=== PATIENT | male | born 1975 | race Caucasian/White ===

== ENCOUNTER 2024-06-28 12:04 | Emergency (ER) | payer OTHER, MEDICAID, SELFPAY ==
[2024-06-28] VITALS (10 sets, daily range): BP systolic 174–211; BP diastolic 97–122; PULSE 91–110; RESP 10–20; TEMP 36.5–36.6; O2SAT 95–97; BMI 40.8
--- NOTE | 2024-06-28 12:33 | PC.NURSE ---
Left lower posterior wheezing. Diminished breath sounds anteriorly and posteriorly. Muffled heart sounds. Pt states he has not taken his bp meds or his anticoagulant meds in a few months. Pt notes bilaterally lower extremity swelling; worse on left per pt. Pt states when he lays flat on his back he feels fluid building up. Pt states he does not feel his wheezing is worse than his normal.
--- NOTE | 2024-06-28 12:34 | ED.EXTPRO ---
HPI - Extremity Problem General Chief complaint: Extremity Problem,Nontraumatic Stated complaint: swollen leg and foot sent by [facility] r/o blood clot Time Seen by Provider: 06/28/24 12:33 Source: patient Mode of arrival: Ambulatory Limitations: no limitations History of Present Illness HPI Narrative: 48-year-old male history of hypertension, DVT and pulmonary embolism 3 years ago not on any anticoagulation presents with complaint of mild shortness of breath, left lower leg swelling and right ankle swelling. Patient presents with complaint of a week of bilateral lower extremity right greater than left, states he has occasionally had some mild swelling in the past but not quite this much except when he did have blood clots in his legs. Patient states no fevers or chills, has had some mild coughing nasal congestion. States occasional twinge of chest pain nothing today. States occasionally he felt short of breath but related this to seasonal allergies he states he is usually short of breath in the fall. Denies any nausea or vomiting, no diaphoresis, no issues with bowel movements or urination. No syncope. Patient states source of his blood clots was never found, was on anticoagulation for 6 months, had repeat ultrasounds which were negative and was cleared to stop his anticoagulation. States no daily prescription medications. Did use to take antihypertensives but his insurance ran out and he never restarted them. Has a history of hernia repair, no known drug allergies, does chew tobacco, has 3 or 4 alcoholic drinks daily, uses marijuana but no other recreational drugs. Does not currently have a primary care physician. Related Data Previous Rx's Medication Instructions Recorded albuterol sulfate 90 mcg/actuation 2 puff inhalation Q4-6H PRN 06/28/24 aerosol inhaler shortness of breath or wheezing #6.7 grams losartan 25 mg tablet 25 mg PO DAILY #30 tabs 06/28/24 Allergies Allergy/AdvReac Type Severity Reaction Status Date / Time No Known Drug Allergies Allergy Verified 06/28/24 12:20 Review of Systems Review of Systems ROS Unobtainable: All systems reviewed & are unremarkable except as noted in HPI and below Patient History Social History Smoking Status: Never smoker Smoking Status: Never smoker alcohol intake frequency: 0-2 drinks per day Substance Use Type: marijuana Exam Narrative Exam Narrative: GENERAL: Alert and oriented x three, obese male in mild distress HEENT: Head normocephalic, atraumatic, EOMI, pupils reactive, face symmetric, moist mucous membranes NECK: Supple, full range of motion CARDIOVASCULAR: Regular rate and rhythm without murmurs, rubs or gallops. No JVD, bilateral pedal and ankle edema, no pretibial edema on exam. No JVD. RESPIRATORY: Breath sounds equal bilaterally, no wheezes rales or rhonchi. No tachypnea, no accessory muscle use. Speaks in full sentences. ABDOMEN: Soft, nontender. Normoactive bowel sounds all 4 quadrants. No guarding or rebound, rigidity, no mass : No CVA tenderness EXTREMITIES: Normal range of motion, no clubbing. Neurovascularly intact NEUROLOGICAL: Cranial nerves II through XII grossly intact. Moving all extremities SKIN: Warm, dry, no petechiae, no rashes or lesions. Initial Vital Signs Initial Vital Signs: Vital Signs Temperature 97.8 F 06/28/24 12:17 Pulse Rate 110 H 06/28/24 12:17 Respiratory Rate 20 06/28/24 12:17 Blood Pressure 192/109 H 06/28/24 12:17 Pulse Oximetry 97 06/28/24 12:17 Oxygen Delivery Method Room Air 06/28/24 12:17 Course Orders Ordered: ED Orders 06/28/24 12:25 Complete Blood Count AUTO DIFF Stat Comprehensive Metabolic Panel Stat Lipase Stat Magnesium Stat NT-proBNP (BNP-Adult 18+) Stat PTT Partial Thromboplastin Chad Stat Prothrombin Time INR Stat Troponin & CK Cardiac Panel Stat 06/28/24 12:38 XR chest 1V Stat EKG-12 Lead Stat 06/28/24 13:07 US periph venous low extrem bi Stat Vital Signs Vital signs: Vital Signs - 8 hr 06/28/24 12:17 06/28/24 12:24 06/28/24 12:24 Temperature 97.8 F Pulse Rate 110 H 103 H Respiratory Rate 20 Blood Pressure 192/109 H 211/122 H Pulse Oximetry 97 97 Oxygen Delivery Method Room Air 06/28/24 12:30 06/28/24 13:00 06/28/24 13:00 Temperature Pulse Rate 105 H 93 H Respiratory Rate 12 12 Blood Pressure 182/114 H Pulse Oximetry 97 95 Oxygen Delivery Method 06/28/24 13:30 06/28/24 13:30 06/28/24 14:00 Temperature Pulse Rate 91 H Respiratory Rate 12 Blood Pressure 174/97 H 177/121 H Pulse Oximetry 97 Oxygen Delivery Method 06/28/24 14:00 Temperature Pulse Rate 96 H Respiratory Rate 16 Blood Pressure Pulse Oximetry 96 Oxygen Delivery Method MDM - Extremity (Nontraumatic) Lab Data 06/28/24 12:25 06/28/24 12:25 Labs: Lab Results 06/28/24 Range/Units 12:25 WBC 9.2 (4.5-11.0) X10^3/uL RBC 3.98 L (4.5-5.9) X10^6/uL Hgb 14.9 (13.5-17.5) g/dL Hct 42.9 (41-53) % MCV 107.8 H (80-100) fL MCH 37.4 H (26-34) PG MCHC 34.7 (30-36) % RDW 14.8 (11.6-14.8) % Plt Count 247 (150-400) X10^3/uL Neut % (Auto) 77.5 H (50-75) % Lymph % (Auto) 15.4 L (25-40) % [place] % (Auto) 5.4 (3-14) % Eos % (Auto) 0.9 L (2-4) % Baso % (Auto) 0.8 (0-2) % Neut # (Auto) 7100 H (1873-5707) /uL Lymph # (Auto) 1400 (0303-5234) /uL [place] # (Auto) 500 (0-900) /uL Eos # (Auto) 100 (0-450) /uL Baso # (Auto) 100 (0-100) /uL PT 11.2 (9.4-12.5) SECONDS INR 1.0 (0.9-1.3) APTT 31 (25.1-36.5) SECONDS Sodium 137 (137-145) mmol/L Potassium 3.7 (3.4-5.1) mmol/L Chloride 101 (98-107) mmol/L Carbon Dioxide 28 (22-32) mmol/L BUN 8 L (9-20) mg/dL Creatinine 0.69 (0.66-1.25) mg/dL Estimated GFR > 60 (>60) mL/min BUN/Creatinine Ratio 11.6 (6-22) Glucose 101 H (70-100) mg/dL Calcium 8.7 (8.4-10.2) mg/dL Magnesium 1.3 L (1.6-2.3) mg/dL Total Bilirubin 1.0 (0.2-1.3) mg/dL AST 93 H (17-59) IU/L ALT 56 H (<50) IU/L Alkaline Phosphatase 83 (38-126) U/L Total Creatine Kinase 59 (55-170) U/L Troponin I 0.015 (0.01-0.034) ng/mL NT-Pro-B Natriuret Pep 394 H (<125) pg/mL Total Protein 7.8 (6.3-8.2) g/dL Albumin 4.2 (3.5-5.0) g/dL Globulin 3.6 (1.7-4.1) g/dL Albumin/Globulin Ratio 1.2 (1.0-2.8) Lipase 189 (23-300) U/L Imaging Data Chest x-ray: Radiologist's Impression: Close Chest X-Ray (Signed) Rey Pastrana - 06/28/24 Launch?[place] [id number] XRay Report Signed Patient: aErl Kent MR#: [id number] : 1975 Acct:[id number] Age/Sex: 48 / M Date of Service: 06/28/24 Loc: ED Accession Number: [id number] Procedure: XR chest 1V Ordering Provider: Annabelle Nicole D.O. PROCEDURE: XR CHEST 1V INDICATIONS: chest pain TECHNIQUE: One view of the chest was acquired. COMPARISON: None. FINDINGS: Surgical changes and devices: None. Lungs and pleura: Lungs are clear. No pleural effusions or pneumothorax. Mediastinum: Mediastinal contours appear normal. Heart size is normal. Bones and chest wall: No suspicious bony lesions. Overlying soft tissues appear unremarkable. IMPRESSION: No acute cardiopulmonary abnormality is seen. Dictated by: Rey Pastrana M.D. on 06/28/2024 at 13:03 Approved by: Rey Pastrana M.D. on 06/28/2024 at 13:05 US - DVT: Radiologist's Impression: [place] [id number] CT Scan Report? Signed Patient: Kaleb Herzog MR#: [id number] : 04/19/1948 Acct:[id number] Age/Sex: 76 / M Date of Service: 07/02/24 Loc: ED Accession Number: [id number]? ? Procedure: CT angio head and neck Ordering Provider: Annabelle Nicole D.O. PROCEDURE:? CT ANGIO HEAD AND NECK ? INDICATIONS:? Sudden dizziness. ? TECHNIQUE:?? After the administration of intravenous contrast, 1 mm thick sections acquired from the? aortic arch through the [place] of [place].? 3-dimensional mpcnlxy-phgjhqsbv-gsqlzgikoz? (MIP) and/or volume rendering reformats were acquired of the central intracranial? vasculature and neck separately. For radiation dose reduction, the following was used:?? automated exposure control, adjustment of mA and/or kV according to patient size.?? ? COMPARISON:? None. ? FINDINGS:?? Image quality:? Diagnostic.?? ? BRAIN:?? Please refer to same day CT of the head ? HEAD CT ANGIOGRAPHY:?? Anterior circulation:? Intracranial internal carotid arteries are normal in size and flow? with atherosclerotic calcifications.? The flow within the paired anterior cerebral? arteries is normal and symmetric.? The flow within the middle cerebral arteries is normal? and symmetric.? The anterior communicating artery is seen.? No aneurysms are seen.?? ? Posterior circulation:? Visualized portions of the vertebral arteries demonstrate normal? caliber, and join to form a normal appearing basilar artery.? Flow within the posterior? cerebral arteries is normal and symmetric.? No aneurysms are seen.?? ? NECK CT ANGIOGRAPHY:?? Carotid system:? The great vessels demonstrate a conventional anatomy as they arise from? the aortic arch.? The origins of the common carotid arteries appear patent.? The common? carotid arteries demonstrate normal caliber and courses.? The bifurcation regions are? widely patent on the left and mildly narrowed on the right, less than 50%.? The internal? carotid arteries demonstrate normal calibers and courses.?? ? Posterior circulation:? The origins of the vertebral arteries both appear widely patent.?? The more superior extracranial portions of both vertebral arteries also demonstrate? normal courses and calibers.? They join to form a normal appearing basilar artery.?? ? Soft tissues:? Visualized neck soft tissues demonstrate no suspicious abnormalities.?? ? Bones:? No suspicious bony lesions.? Visualized cervical spine appears normally aligned.?? Degenerative changes of the spine. ? ? IMPRESSION:?? ? No significant intracranial arterial abnormality is seen. ? No significant abnormality is seen within the arteries of the neck. ? ? Any quantitative measurements of stenosis were performed using NASCET criteria.? Dictated by: Dirk Barton M.D. on 07/02/2024 at 21:42? ? ? Approved by: Dirk Barton M.D. on 07/02/2024 at 21:47? ? ECG Data Attestation EKG: I personally reviewed and interpreted this ECG as follows: Prior ECG tracings: not available for review Interpretation: Rhythm with short OH 944, OH 96 QRS of 102 QTC 475, no acute ST elevation. No priors for comparison. MDM Narrative Medical decision making narrative: Labs white cells 9.2 hemoglobin 14.9 platelets of 247 predominance of neutrophils. Coags INR 1, electrolytes are appropriate BUN 8 creatinine 0.69 glucose is 101 magnesium low at 1.3 total bilirubin is 1 AST is 93 ALT is 56 alk-phos is 83 troponin 0.015, BNP is 394. Lipase is 189. EKG shows sinus rhythm rate of 94. Chest x-ray shows no acute change Bilateral DVT is negative. Patient is slightly tachycardic but also hypertensive. Patient notes he is supposed to be on antihypertensives when his insurance ran out. He does not recall what he used to take. Discussed with patient negative DVTs, negative troponin and BNP discussed CT angio chest patient defers which I think is appropriate he is hypertensive he has not been persistently tachycardic he has not had any hypoxia. He has compression hose which he will start using again, we will also restart his losartan he is unsure the exact dose of we will start with the lowest dose. And he is insurance again so we will follow up with primary care. Discussed return precautions. Discharge Plan Departure Patient Disposition: Home Clinical Impression: Lower extremity edema Instructions: DI for Peripheral Edema -- Bilateral Activity Restrictions/Additional Instructions: Please follow up with primary care for recheck. There is a card attached that has contacts for local physicians taking new patients. A prescription for losartan has been sent to [facility]. Please take this daily. Use compression stockings and elevate your feet when resting. Please return for new chest pain or shortness of breath, increasing swelling in extremities, fevers, lightheadedness or passing out or other new or concerning changes. Prescriptions: New albuterol sulfate 90 mcg/actuation HFA aerosol inhaler 2 puff inhalation Q4-6H PRN (Reason: shortness of breath or wheezing) Qty: 6.7 0RF losartan 25 mg tablet 25 mg PO DAILY Qty: 30 0RF Referrals: Miscellaneous,Doctor, MD [Primary Care Provider] - Stand Alone Forms: Patient Portal/API
--- NOTE | 2024-06-28 12:38 | DI.RAD.S_ITS ---
PROCEDURE: XR CHEST 1V INDICATIONS: chest pain TECHNIQUE: One view of the chest was acquired. COMPARISON: None. FINDINGS: Surgical changes and devices: None. Lungs and pleura: Lungs are clear. No pleural effusions or pneumothorax. Mediastinum: Mediastinal contours appear normal. Heart size is normal. Bones and chest wall: No suspicious bony lesions. Overlying soft tissues appear unremarkable. IMPRESSION: No acute cardiopulmonary abnormality is seen. Dictated by: Rey Pastrana M.D. on 06/28/2024 at 13:03 Approved by: Rey Pastrana M.D. on 06/28/2024 at 13:05
--- NOTE | 2024-06-28 12:41 | EKG_ITS ---
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
[2024-06-28 12:48] LABS: Prothrombin Time 11.2 SECONDS (9.4-12.5)
[2024-06-28 12:50] LABS: Add Manual Diff / Slide Review NO; Basophils Absolute Auto 100 /uL (0-100); Basophils Percent Auto 0.8 % (0-2); Eosinophils Absolute Auto 100 /uL (0-450); Eosinophils Percent Auto 0.9 % (2-4); Hematocrit 42.9 % (41-53); Hemoglobin 14.9 g/dL (13.5-17.5); Lymphocytes Absolute Auto 1400 /uL (1100-4500); Lymphocytes Percent Auto 15.4 % (25-40); Mean Corpuscular HGB Conc 34.7 % (30-36); Mean Corpuscular Hemoglobin 37.4 PG (26-34); Mean Corpuscular Volume 107.8 fL (80-100); Monocytes Absolute Auto 500 /uL (0-900); Monocytes Percent Auto 5.4 % (3-14); Neutrophils Absolute Auto 7100 /uL (1500-7000); Neutrophils Percent Auto 77.5 % (50-75); Platelet Count 247 X10^3/uL (150-400); Red Blood Cell Count 3.98 X10^6/uL (4.5-5.9); Red Cell Distribution Width 14.8 % (11.6-14.8); White Blood Cell Count 9.2 X10^3/uL (4.5-11.0)
[2024-06-28 12:51] LABS: PTT Partial Thromboplastin Tim 31 SECONDS (25.1-36.5)
[2024-06-28 12:53] LABS: Alanine Aminotransferase 56 IU/L (<50); Albumin 4.2 g/dL (3.5-5.0); Albumin Globulin Ratio 1.2 (1.0-2.8); Alkaline Phosphatase 83 U/L (38-126); Aspartate Aminotransferase 93 IU/L (17-59); BUN Creatinine Ratio 11.6 (6-22); Blood Urea Nitrogen 8 mg/dL (9-20); Calcium 8.7 mg/dL (8.4-10.2); Carbon Dioxide 28 mmol/L (22-32); Chloride 101 mmol/L (98-107); Creatine Kinase 59 U/L (55-170); Estimated Glomerular Filt Rate > 60 mL/min (>60); Globulin 3.6 g/dL (1.7-4.1); Glucose 101 mg/dL (70-100); HEMOLYSIS 16 (0-50); Lipase 189 U/L (23-300); Magnesium 1.3 mg/dL (1.6-2.3); Potassium 3.7 mmol/L (3.4-5.1); Sodium 137 mmol/L (137-145); Total Protein 7.8 g/dL (6.3-8.2)
[2024-06-28 13:05] LABS: NT-proBNP (BNP-Adult 18+) 394 pg/mL (<125); Troponin I 0.015 ng/mL (0.01-0.034)
--- NOTE | 2024-06-28 13:07 | DI.US.S_ITS ---
PROCEDURE: US PERIPH VENOUS LOW EXTREM BI INDICATIONS: SWELLING. HISTORY OF DEEP VEIN THROMBOSIS 3 YEARS AGO. TECHNIQUE: Real-time imaging, as well as color and pulse Doppler interrogation, were performed of the deep veins of both legs from the inguinal ligament to the popliteal fossa, with documentation of the visualized calf veins. COMPARISON: None. FINDINGS: Right: The common femoral, femoral, popliteal, and the visualized calf veins are normally compressible, and free of intraluminal thrombus. Color and pulse Doppler demonstrate normal phasic intravascular flow. There is normal augmentation response to distal compression maneuver. Left: The common femoral, femoral, popliteal, and the visualized calf veins are normally compressible, and free of intraluminal thrombus. Color and pulse Doppler demonstrate normal phasic intravascular flow. There is normal augmentation response to distal compression maneuver. IMPRESSION: No findings of deep venous thrombosis in either lower extremity. Dictated by: Daniele Dodson M.D. on 06/28/2024 at 13:50 Approved by: Daniele Dodson M.D. on 06/28/2024 at 13:50
== END 2024-06-28 15:05 | disposition home or self-care (01) ==
PROVIDERS: Emergency Provider Emergency Medicine
DX: R60.0 Localized edema (principal); R07.9 Chest pain, unspecified; R42 Dizziness and giddiness; R00.0 Tachycardia, unspecified; I10 Essential (primary) hypertension
CPT/HCPCS: 71045; 80053; 82550; 83690; 83735; 83880; 84484; 85025; 85610; 85730; 93005; 93010; 93970; 99283; 99284

== ENCOUNTER → 2024-10-14 14:29 | Outpatient (CLI) | payer OTHER, SELFPAY ==
--- NOTE | 2024-10-14 | DI.RAD.S_ITS ---
PROCEDURE: XR HIP W PEL IF DONE LT 2V INDICATIONS: chronic left hip pain TECHNIQUE: 2 views of the hip were acquired. COMPARISON: None. FINDINGS: Bones: No fractures or dislocations. No suspicious bony lesions. The visualized pelvic ring appears intact. Nonuniform joint space narrowing and osteophytic lipping of the acetabuli. Subchondral sclerosis and early cystic change of the left acetabulum, without bony deformity. Soft tissues: No suspicious soft tissue calcifications or masses. IMPRESSION: Moderate to severe left hip osteoarthritis. Kellgren-Marcel Grade 3. Dictated by: Rey Pastrana M.D. on 10/14/2024 at 16:50 Approved by: Rey Pastrana M.D. on 10/14/2024 at 16:51
[2024-10-14 15:12] LABS: Hematocrit 42.9 % (41-53); Hemoglobin 14.7 g/dL (13.5-17.5); Mean Corpuscular HGB Conc 34.3 % (30-36); Mean Corpuscular Hemoglobin 38.3 PG (26-34); Mean Corpuscular Volume 111.8 fL (80-100); Platelet Count 268 X10^3/uL (150-400); Red Blood Cell Count 3.84 X10^6/uL (4.5-5.9); Red Cell Distribution Width 13.4 % (11.6-14.8); White Blood Cell Count 9.7 X10^3/uL (4.5-11.0)
[2024-10-14 15:22] LABS: Creatinine Urine Random 163.87 mg/dL
[2024-10-14 15:23] LABS: Alanine Aminotransferase 55 IU/L (<50); Albumin 4.5 g/dL (3.5-5.0); Albumin Globulin Ratio 1.2 (1.0-2.8); Alkaline Phosphatase 92 U/L (38-126); Aspartate Aminotransferase 89 IU/L (17-59); Bilirubin Total 0.6 mg/dL (0.2-1.3); Blood Urea Nitrogen 8 mg/dL (9-20); Calcium 8.9 mg/dL (8.4-10.2); Carbon Dioxide 32 mmol/L (22-32); Chloride 100 mmol/L (98-107); Cholesterol 248 mg/dL (140-199); Estimated Glomerular Filt Rate > 60 mL/min (>60); Globulin 3.9 g/dL (1.7-4.1); Glucose 91 mg/dL (70-100); HDL Cholesterol 94 mg/dL (40-60); HEMOLYSIS < 15 (0-50); LDL Cholesterol Calculated 129 mg/dL (<100); Potassium 4.1 mmol/L (3.4-5.1); Sodium 140 mmol/L (137-145); Total Protein 8.4 g/dL (6.3-8.2); Triglycerides 124 mg/dL (35-150)
[2024-10-14 15:26] LABS: Microalbumin Urine Random 3.2 mg/dL (0-1.6)
[2024-10-14 16:12] LABS: HIV 1 & 2 Ab/Ag 4th Gen Combo NEGATIVE (NEGATIVE); Hep C Virus Ab w/Reflex Quant NEGATIVE s/c (NEGATIVE)
== END ==
PROVIDERS: PCP Family Medicine; Referring Provider Family Medicine; Visit Provider Family Medicine
DX: Z11.4 Encounter for screening for human immunodeficiency virus [HIV] (principal); Z11.59 Encounter for screening for other viral diseases; Z13.220 Encounter for screening for lipoid disorders; M16.12 Unilateral primary osteoarthritis, left hip; I10 Essential (primary) hypertension; E66.01 Morbid (severe) obesity due to excess calories
CPT/HCPCS: 36415; 73502; 80053; 80061; 82043; 82570; 85027; 86803; 87389

== ENCOUNTER → 2024-11-13 09:53 | Outpatient (CLI) | payer OTHER, SELFPAY ==
[2024-11-13 11:26] LABS: BUN Creatinine Ratio 15.2 (6-22); Blood Urea Nitrogen 15 mg/dL (9-20); Calcium 9.6 mg/dL (8.4-10.2); Carbon Dioxide 33 mmol/L (22-32); Chloride 93 mmol/L (98-107); Estimated Glomerular Filt Rate > 60 mL/min (>60); Glucose 112 mg/dL (70-100); HEMOLYSIS < 15 (0-50); Potassium 4.4 mmol/L (3.4-5.1); Sodium 137 mmol/L (137-145)
[2024-11-17 21:12] LABS: Percent Free Testosterone 2.45 % (1.50-4.20); Testosterone Free 0.72 ng/dL (5.00-21.00); Testosterone Total 29.2 ng/dL (264.0-916.0)
== END ==
PROVIDERS: PCP Family Medicine; Referring Provider Family Medicine; Visit Provider Family Medicine
DX: I10 Essential (primary) hypertension (principal); R68.82 Decreased libido
CPT/HCPCS: 36415; 80048; 84402; 84403

== ENCOUNTER → 2024-12-24 13:05 | Outpatient (CLI) | payer OTHER, SELFPAY ==
[2025-01-06 10:11] LABS: Percent Free Testosterone 3.27 % (1.50-4.20); Testosterone Free 1.31 ng/dL (5.00-21.00); Testosterone Total 40.2 ng/dL (264.0-916.0)
== END ==
PROVIDERS: PCP Family Medicine; Referring Provider Family Medicine; Visit Provider Family Medicine
DX: R79.89 Other specified abnormal findings of blood chemistry (principal)
CPT/HCPCS: 36415; 84402; 84403

== ENCOUNTER → 2025-02-26 10:16 | Outpatient (CLI) | payer OTHER, SELFPAY ==
--- NOTE | 2025-02-26 10:21 | DI.US.S_ITS ---
PROCEDURE: US ABDOMEN LIMITED INDICATIONS: Elevated Transaminase TECHNIQUE: Real-time focused scanning was performed of the abdomen, with image documentation. COMPARISON: None. FINDINGS: The liver demonstrates enlarged size. The liver demonstrates generalized moderately increased echogenicity. This decreases ultrasound sensitivity for detection of hepatic masses. No findings of gallstones or sludge are seen. The gallbladder wall is not thickened, measuring 3 mm or less. No specific pericholecystic fluid is seen. The sonographic Jesus sign is negative. There is no biliary dilatation, the common bile duct measures 3 mm. The pancreas is mildly heterogeneous, yet without a focal mass identified. This study is limited by body habitus. IMPRESSION: Enlarged, fatty infiltrated liver. Dictated by: Erwin Otero M.D. on 02/26/2025 at 11:32 Approved by: Erwin Otero M.D. on 02/26/2025 at 11:33
[2025-02-26 13:09] LABS: Follicle Stimulating Hormone 3.53 mIU/mL; Luteinizing Hormone 1.83 mIU/mL
[2025-02-26 14:41] LABS: Free T4, Direct Thyroxine 1.49 ng/dL (0.78-2.19)
[2025-02-26 14:42] LABS: Prolactin 8.6 ng/mL (3.7-17.9)
[2025-02-26 14:55] LABS: Thyroid Stimulating Hormone 3.06 uIU/mL (0.47-4.68)
[2025-02-27 02:36] LABS: Sex Hormone Binding Globulin 31.8 nmol/L (16.5-55.9)
[2025-03-05 08:36] LABS: Percent Free Testosterone 2.72 % (1.50-4.20); Testosterone Free 1.65 ng/dL (5.00-21.00); Testosterone Total 60.8 ng/dL (264.0-916.0)
== END ==
PROVIDERS: PCP Family Medicine; Referring Provider Family Medicine; Visit Provider Family Medicine
DX: K76.0 Fatty (change of) liver, not elsewhere classified (principal); R74.01 Elevation of levels of liver transaminase levels; R68.82 Decreased libido; R79.89 Other specified abnormal findings of blood chemistry; E66.01 Morbid (severe) obesity due to excess calories
CPT/HCPCS: 36415; 76705; 83001; 83002; 84146; 84270; 84402; 84403; 84439; 84443

== ENCOUNTER 2025-03-20 22:47 | Inpatient (IN) | payer OTHER, SELFPAY ==
[2025-03-20 23:02] VITALS: BP 125/93; PULSE 124; RESP 20; TEMP 36.6; O2SAT 88; BMI 44.0
--- NOTE | 2025-03-20 23:02 | DI.RAD.S_ITS ---
PROCEDURE: XR CHEST 1V INDICATIONS: Chest Pain TECHNIQUE: One view of the chest was acquired. COMPARISON: [facility], CR, XR CHEST 1V, 06/28/2024, 12:38. FINDINGS: Surgical changes and devices: None. Lungs and pleura: Lungs are clear. No pleural effusions or pneumothorax. Mediastinum: Mediastinal contours appear normal. Heart size is normal. Bones and chest wall: No suspicious bony lesions. Overlying soft tissues appear unremarkable. IMPRESSION: No acute pulmonary process. Dictated by: Aliyah Peter M.D. on 03/20/2025 at 23:19 Approved by: Aliyah Peter M.D. on 03/20/2025 at 23:23
--- NOTE | 2025-03-20 23:02 | EKG_ITS ---
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
[2025-03-20 23:11] LABS: INR 1.2 (0.9-1.3); Prothrombin Time 14.1 SECONDS (9.4-12.5)
[2025-03-20 23:12] LABS: Add Manual Diff / Slide Review NO; Basophils Absolute Auto 200 /uL (0-100); Basophils Percent Auto 1.1 % (0-2); Eosinophils Absolute Auto 0 /uL (0-450); Eosinophils Percent Auto 0.1 % (2-4); Hematocrit 42.7 % (41-53); Hemoglobin 14.6 g/dL (13.5-17.5); Lymphocytes Absolute Auto 2200 /uL (1100-4500); Mean Corpuscular HGB Conc 34.3 % (30-36); Mean Corpuscular Hemoglobin 38.7 PG (26-34); Mean Corpuscular Volume 112.7 fL (80-100); Monocytes Absolute Auto 1600 /uL (0-900); Monocytes Percent Auto 9.5 % (3-14); Neutrophils Absolute Auto 13000 /uL (1500-7000); Neutrophils Percent Auto 76.3 % (50-75); Platelet Count 296 X10^3/uL (150-400); Red Blood Cell Count 3.79 X10^6/uL (4.5-5.9); Red Cell Distribution Width 15.7 % (11.6-14.8); White Blood Cell Count 17.1 X10^3/uL (4.5-11.0)
[2025-03-20 23:17] LABS: Alanine Aminotransferase 56 IU/L (<50); Albumin 4.5 g/dL (3.5-5.0); Albumin Globulin Ratio 1.2 (1.0-2.8); Alkaline Phosphatase 101 U/L (38-126); Aspartate Aminotransferase 58 IU/L (17-59); BUN Creatinine Ratio 16.9 (6-22); Bilirubin Total 0.9 mg/dL (0.2-1.3); Blood Urea Nitrogen 42 mg/dL (9-20); Calcium 9.7 mg/dL (8.4-10.2); Carbon Dioxide 20 mmol/L (22-32); Chloride 95 mmol/L (98-107); Estimated Glomerular Filt Rate 31 mL/min (>60); Globulin 3.9 g/dL (1.7-4.1); Glucose 133 mg/dL (70-99); HEMOLYSIS < 15 (0-50); Lipase 143 U/L (23-300); Magnesium 1.8 mg/dL (1.6-2.3); Potassium 3.7 mmol/L (3.4-5.1); Sodium 135 mmol/L (137-145); Total Protein 8.4 g/dL (6.3-8.2)
[2025-03-20] MEDS: ALBUTEROL 2.5 MG/3 ML NEB (ADULT) INH (23:20)
[2025-03-20 23:25] LABS: NT-proBNP (BNP-Adult 18+) 15500 pg/mL (<125)
[2025-03-20 23:30] VITALS: BP 124/81; PULSE 119; RESP 20; O2SAT 94
[2025-03-20 23:58] VITALS: PULSE 117; RESP 15; O2SAT 91
[2025-03-20 23:58] LABS: Anisocytosis 1+; Macrocytosis 1+; Platelet Estimate Adequate on smear
[2025-03-21] VITALS (94 sets, daily range): BP systolic 66–194; BP diastolic 11–118; PULSE 0–140; RESP 15–121; TEMP 29.1–36.5; O2SAT 18–97; BMI 44.0
[2025-03-21 00:10] LABS: Influenza A - CEPHEID Flu A NEGATIVE (NEGATIVE); Influenza B - CEPHEID Flu B NEGATIVE (NEGATIVE); Respiratory Syncytial Virus Negative (Negative)
[2025-03-21 00:12] LABS: COVID-19 CEPHEID 4-PLEX PCR Negative (Negative)
--- NOTE | 2025-03-21 00:23 | ED.SOB ---
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 No recent course of antibiotic recalled. No congestive heart failure recalled. No lower extremity edema. No recent leg pain or swelling symptoms. Denies pain in chest. MD Complaint: shortness of breath Related Data Previous Rx's ?Medication ?Instructions ?Recorded albuterol sulfate 90 mcg/actuation 2 puff inhalation Q4-6H PRN 10/01/24 aerosol inhaler shortness of breath or wheezing #6.7 grams inhaler,assist devices,access #1 ea 10/01/24 (Optichamber Adult Mask-Large) hydrochlorothiazide 25 mg tablet 25 mg PO QAM #30 tabs 11/27/24 amlodipine 10 mg tablet 10 mg PO DAILY #30 tabs 12/27/24 losartan 100 mg tablet 100 mg PO DAILY #30 tabs 03/17/25 Allergies Allergy/AdvReac Type Severity Reaction Status Date / Time No Known Drug Allergies Allergy Verified 12/27/24 11:44 Patient History Medical History (Updated 03/21/25 @ 04:27 by Lokesh Maki MD) Chicken pox Hx of blood clots Alcohol use Chronic left hip pain Asthma Hypertension (~2018) Surgical History (Updated 10/30/24 @ 19:06 by Rika Julien) Anesthesia History of hernia repair (~1991) Family History (Updated 10/30/24 @ 19:07 by Rika Julien) Father Cancer Hypertension Grandfather Stroke Social History marital status: household members: spouse, family and children lives independently: Yes occupational status: unemployed Previous occupational history: Previously worked in construction Tobacco: How many years used: 10 Smokeless tobacco user: chewing tobacco (Since age 32) alcohol intake: current substance use type: marijuana (smokes daily) alcohol intake frequency: 0-2 drinks per day Exam Narrative Exam Narrative: GENERAL: Well-developed patient, in mild distress. HEAD: Atraumatic. Normocephalic. EYES: Pupils equal round and reactive. Extraocular motions intact. No scleral icterus. No injection or drainage. ENT: Nose without bleeding, purulent drainage. Throat without erythema, tonsillar hypertrophy or exudate. Airway patent. NECK: Trachea midline. Non tender CARDIOVASCULAR: Regular rate and rhythm without murmurs, gallops, or rubs. RESPIRATORY: Clear to auscultation. Breath sounds equal bilaterally. No wheezes, rales, or rhonchi. GASTROINTESTINAL: Abdomen soft, non-tender, nondistended. EXTREMITIES: No edema or joint tenderness. BACK: Nontender without deformity or crepitance. No flank tenderness. NEURO: AOx3. Motor functions grossly nonfocal. SKIN: No rash or erythema of visible areas Initial Vital Signs Initial Vital Signs: Vital Signs Temperature 98 F 03/20/25 23:02 Pulse Rate 124 H 03/20/25 23:02 Respiratory Rate 20 03/20/25 23:02 Blood Pressure 125/93 H 03/20/25 23:02 Pulse Oximetry 88 L 03/20/25 23:02 Oxygen Delivery Method Room Air 03/20/25 23:02 Course Orders Ordered: ED Orders 03/20/25 22:55 Complete Blood Count AUTO DIFF Stat Comprehensive Metabolic Panel Stat Lipase Stat Magnesium Stat NT-proBNP (BNP-Adult 18+) Stat Prothrombin Time INR Stat 03/20/25 23:02 XR chest 1V Stat EKG-12 Lead Stat 03/20/25 23:04 EKG-12 Lead Stat 03/20/25 23:16 Covid-19 + FLU A/B + RSV - PCR Stat 03/21/25 00:28 CT chest wo con Stat 03/21/25 00:32 Troponin I Stat 03/21/25 00:36 Respiratory Panel (Film Array) Stat 03/21/25 01:30 Blood Culture Stat 03/21/25 01:42 Trop I [Troponin I] Stat 03/21/25 02:01 Lactate (Lactic Acid) Stat 03/21/25 02:23 EKG-12 Lead Stat 03/21/25 04:05 BMP [Basic Metabolic Panel] Stat Acetaminophen (Acetaminophen 325 Mg Tablet) 650 mg PO Q6H PRN PRN Reason: Fever/Mild Pain (1-3) Albuterol (Albuterol 2.5 Mg/3 Ml Neb (Adult)) 2.5 mg INH [id number] PRN PRN Reason: Shortness Of Breath Or Wheezing Enoxaparin Sodium (Enoxaparin 40 Mg/0.4 Ml Syringe) 40 mg SUBCUT DAILY JEANCARLOS Naloxone HCl (Naloxone 0.4 Mg/Ml Vial) 0.2 mg IV Q2MIN PRN PRN Reason: Opiate Reversal Ondansetron HCl (Ondansetron 4 Mg/2 Ml Inj) 4 mg IV Q8HR PRN PRN Reason: Nausea And Vomiting Discontinued Medications Albuterol (Albuterol 2.5 Mg/3 Ml Neb (Adult)) 2.5 mg INH NOW ONE Stop: 03/20/25 23:08 Last Admin: 03/20/25 23:20 Dose: 2.5 mg Documented By: Albuterol (Albuterol 2.5 Mg/3 Ml Neb (Adult)) 2.5 mg INH NOW ONE Stop: 03/21/25 00:25 Last Admin: 03/21/25 00:46 Dose: 2.5 mg Documented By: Doxycycline Hyclate (Doxycycline Hyclate 100 Mg Tablet) 100 mg PO NOW ONE Stop: 03/21/25 00:26 Last Admin: 03/21/25 01:19 Dose: 100 mg Documented By: NAHUM Furosemide (Furosemide 40 Mg/4 Ml Vial) 40 mg IV NOW ONE Stop: 03/21/25 04:23 Last Admin: 03/21/25 04:43 Dose: 40 mg Ceftriaxone Sodium 1,000 mg/ (Sodium Chloride) 100 mls @ 200 mls/hr IV NOW ONE Stop: 03/21/25 00:27 Last Infusion: 03/21/25 02:08 Dose: Infused Documented By: Admin: 03/21/25 01:19 Dose: 200 mls/hr Documented By: NAHUM Methylprednisolone (Methylprednisolone 125 Mg/2 Ml Vial) 125 mg IV NOW ONE Stop: 03/21/25 00:25 Last Admin: 03/21/25 01:07 Dose: 125 mg Documented By: NAHUM Vital Signs Vital signs: Vital Signs - 8 hr 03/20/25 23:02 03/20/25 23:30 03/20/25 23:58 Temperature 98 F Pulse Rate 124 H 119 H 117 H Respiratory Rate 20 20 15 Blood Pressure 125/93 H 124/81 Pulse Oximetry 88 L 94 91 Oxygen Delivery Method Room Air Nasal Cannula Nasal Cannula Oxygen Flow Rate 2 4 03/21/25 00:00 03/21/25 00:00 03/21/25 00:30 Temperature Pulse Rate 117 H 112 H Respiratory Rate 17 20 Blood Pressure 98/56 L Pulse Oximetry 89 L 92 Oxygen Delivery Method Oxygen Flow Rate 03/21/25 00:30 03/21/25 01:02 03/21/25 01:30 Temperature Pulse Rate 114 H 112 H Respiratory Rate 15 22 Blood Pressure 106/57 L Pulse Oximetry 95 93 Oxygen Delivery Method Oxygen Flow Rate 03/21/25 02:00 03/21/25 02:30 03/21/25 03:00 Temperature Pulse Rate 109 H 108 H 109 H Respiratory Rate 20 23 17 Blood Pressure Pulse Oximetry 92 90 L 86 L Oxygen Delivery Method Nasal Cannula Oxygen Flow Rate 4 03/21/25 03:30 03/21/25 04:00 03/21/25 04:30 Temperature Pulse Rate 109 H 108 H 109 H Respiratory Rate 17 20 17 Blood Pressure Pulse Oximetry 90 L 91 92 Oxygen Delivery Method Oxygen Flow Rate 03/21/25 04:59 03/21/25 04:59 03/21/25 05:00 Temperature Pulse Rate 109 H 110 H Respiratory Rate 21 17 Blood Pressure 91/70 Pulse Oximetry 92 92 Oxygen Delivery Method Oxygen Flow Rate 03/21/25 05:00 Temperature Pulse Rate Respiratory Rate Blood Pressure 94/70 Pulse Oximetry Oxygen Delivery Method Oxygen Flow Rate MDM - SOB/Dyspnea Lab Data Attestation: I reviewed the patient's lab results. Lab results narrative: White blood cell count 19548, hemoglobin 14.6, platelets 296,000. Glucose 133. BUN 42 with creatinine 2.49, serum CO2 20 decreased, sodium 135, potassium 3.7. Slight elevation ALT, other liver functions unremarkable. Lipase normal. BNP 75467. 03/20/25 22:55 03/21/25 04:50 Labs: Lab Results 03/20/25 03/20/25 03/20/25 Range/Units 22:55 23:16 23:16 WBC 17.1 H (4.5-11.0) X10^3/uL RBC 3.79 L (4.5-5.9) X10^6/uL Hgb 14.6 (13.5-17.5) g/dL Hct 42.7 (41-53) % MCV 112.7 H (80-100) fL MCH 38.7 H (26-34) PG MCHC 34.3 (30-36) % RDW 15.7 H (11.6-14.8) % Plt Count 296 (150-400) X10^3/uL Neut % (Auto) 76.3 H (50-75) % Lymph % (Auto) 13.0 L (25-40) % [place] % (Auto) 9.5 (3-14) % Eos % (Auto) 0.1 L (2-4) % Baso % (Auto) 1.1 (0-2) % Neut # (Auto) 61192 H (2484-4387) /uL Lymph # (Auto) 2200 (4050-3197) /uL [place] # (Auto) 1600 H (0-900) /uL Eos # (Auto) 0 (0-450) /uL Baso # (Auto) 200 H (0-100) /uL Platelet Estimate Adequate on smear RBC Morphology See below Anisocytosis 1+ H Macrocytosis 1+ H PT 14.1 H (9.4-12.5) SECONDS INR 1.2 (0.9-1.3) Sodium 135 L (137-145) mmol/L Potassium 3.7 (3.4-5.1) mmol/L Chloride 95 L (98-107) mmol/L Carbon Dioxide 20 L (22-32) mmol/L BUN 42 H (9-20) mg/dL Creatinine 2.49 H (0.66-1.25) mg/dL Estimated GFR 31 L (>60) mL/min BUN/Creatinine Ratio 16.9 (6-22) Glucose 133 H (70-99) mg/dL Lactate (0.7-2.1) mmol/L Calcium 9.7 (8.4-10.2) mg/dL Magnesium 1.8 (1.6-2.3) mg/dL Total Bilirubin 0.9 (0.2-1.3) mg/dL AST 58 (17-59) IU/L ALT 56 H (<50) IU/L Alkaline Phosphatase 101 (38-126) U/L Troponin I 0.043 H (0.01-0.034) ng/mL NT-Pro-B Natriuret Pep 54850 H (<125) pg/mL Total Protein 8.4 H (6.3-8.2) g/dL Albumin 4.5 (3.5-5.0) g/dL Globulin 3.9 (1.7-4.1) g/dL Albumin/Globulin Ratio 1.2 (1.0-2.8) Lipase 143 (23-300) U/L Chlamy pneumoniae PCR Not detected (Not Detect) Adenovirus (PCR) Not detected (Not Detect) B. pertussis DNA (PCR) Not detected (Not Detect) B.parapertussis DNA PCR Not detected (Not Detecte) Coronavirus OC43 (PCR) Not detected (Not Detect) Coronavirus HKU1 (PCR) Not detected (Not Detect) Coronavirus 229E (PCR) Not detected (Not Detect) SARS-CoV-2 (PCR) Negative Not detected (Negative) Coronavirus NL63 (PCR) Not detected (Not Detect) Human Metapneumovir PCR Not detected (Not Detect) Influenza A (RT-PCR) Flu a negative (NEGATIVE) Influenza Type A (PCR) Not detected (Not Detect) Influenza B (RT-PCR) Flu b negative (NEGATIVE) Influenza Type B (PCR) Not detected (Not Detect) M. pneumoniae (PCR) Not detected (Not Detect) Parainfluenza 1 (PCR) Not detected (Not Detect) Parainfluenza 2 (PCR) Not detected (Not Detect) Parainfluenza 3 (PCR) Not detected (Not Detect) Parainfluenza 4 (PCR) Not detected (Not Detect) RSV (PCR) Negative (Negative) Entero/Rhino (PCR) (Not Detect) 03/20/25 03/21/25 03/21/25 Range/Units 23:16 01:42 02:01 WBC (4.5-11.0) X10^3/uL RBC (4.5-5.9) X10^6/uL Hgb (13.5-17.5) g/dL Hct (41-53) % MCV (80-100) fL MCH (26-34) PG MCHC (30-36) % RDW (11.6-14.8) % Plt Count (150-400) X10^3/uL Neut % (Auto) (50-75) % Lymph % (Auto) (25-40) % Florence % (Auto) (3-14) % Eos % (Auto) (2-4) % Baso % (Auto) (0-2) % Neut # (Auto) (1311-5620) /uL Lymph # (Auto) (3060-3532) /uL Florence # (Auto) (0-900) /uL Eos # (Auto) (0-450) /uL Baso # (Auto) (0-100) /uL Platelet Estimate RBC Morphology Anisocytosis Macrocytosis PT (9.4-12.5) SECONDS INR (0.9-1.3) Sodium (137-145) mmol/L Potassium (3.4-5.1) mmol/L Chloride (98-107) mmol/L Carbon Dioxide (22-32) mmol/L BUN (9-20) mg/dL Creatinine (0.66-1.25) mg/dL Estimated GFR (>60) mL/min BUN/Creatinine Ratio (6-22) Glucose (70-99) mg/dL Lactate 1.9 (0.7-2.1) mmol/L Calcium (8.4-10.2) mg/dL Magnesium (1.6-2.3) mg/dL Total Bilirubin (0.2-1.3) mg/dL AST (17-59) IU/L ALT (<50) IU/L Alkaline Phosphatase (38-126) U/L Troponin I 0.041 H (0.01-0.034) ng/mL NT-Pro-B Natriuret Pep (<125) pg/mL Total Protein (6.3-8.2) g/dL Albumin (3.5-5.0) g/dL Globulin (1.7-4.1) g/dL Albumin/Globulin Ratio (1.0-2.8) Lipase (23-300) U/L Chlamy pneumoniae PCR (Not Detect) Adenovirus (PCR) (Not Detect) B. pertussis DNA (PCR) (Not Detect) B.parapertussis DNA PCR (Not Detecte) Coronavirus OC43 (PCR) (Not Detect) Coronavirus HKU1 (PCR) (Not Detect) Coronavirus 229E (PCR) (Not Detect) SARS-CoV-2 (PCR) (Negative) Coronavirus NL63 (PCR) (Not Detect) Human Metapneumovir PCR (Not Detect) Influenza A (RT-PCR) (NEGATIVE) Influenza Type A (PCR) (Not Detect) Influenza B (RT-PCR) (NEGATIVE) Influenza Type B (PCR) (Not Detect) M. pneumoniae (PCR) (Not Detect) Parainfluenza 1 (PCR) (Not Detect) Parainfluenza 2 (PCR) (Not Detect) Parainfluenza 3 (PCR) (Not Detect) Parainfluenza 4 (PCR) (Not Detect) RSV (PCR) Not detected (Negative) Entero/Rhino (PCR) Not detected (Not Detect) 03/21/25 Range/Units 04:50 WBC (4.5-11.0) X10^3/uL RBC (4.5-5.9) X10^6/uL Hgb (13.5-17.5) g/dL Hct (41-53) % MCV (80-100) fL MCH (26-34) PG MCHC (30-36) % RDW (11.6-14.8) % Plt Count (150-400) X10^3/uL Neut % (Auto) (50-75) % Lymph % (Auto) (25-40) % Florence % (Auto) (3-14) % Eos % (Auto) (2-4) % Baso % (Auto) (0-2) % Neut # (Auto) (3992-2816) /uL Lymph # (Auto) (1817-2764) /uL Florence # (Auto) (0-900) /uL Eos # (Auto) (0-450) /uL Baso # (Auto) (0-100) /uL Platelet Estimate RBC Morphology Anisocytosis Macrocytosis PT (9.4-12.5) SECONDS INR (0.9-1.3) Sodium 131 L (137-145) mmol/L Potassium 5.4 H D (3.4-5.1) mmol/L Chloride 97 L (98-107) mmol/L Carbon Dioxide 19 L (22-32) mmol/L BUN 48 H (9-20) mg/dL Creatinine 2.71 H (0.66-1.25) mg/dL Estimated GFR 28 L (>60) mL/min BUN/Creatinine Ratio 17.7 (6-22) Glucose 138 H (70-99) mg/dL Lactate (0.7-2.1) mmol/L Calcium 8.9 (8.4-10.2) mg/dL Magnesium (1.6-2.3) mg/dL Total Bilirubin (0.2-1.3) mg/dL AST (17-59) IU/L ALT (<50) IU/L Alkaline Phosphatase (38-126) U/L Troponin I (0.01-0.034) ng/mL NT-Pro-B Natriuret Pep (<125) pg/mL Total Protein (6.3-8.2) g/dL Albumin (3.5-5.0) g/dL Globulin (1.7-4.1) g/dL Albumin/Globulin Ratio (1.0-2.8) Lipase (23-300) U/L Chlamy pneumoniae PCR (Not Detect) Adenovirus (PCR) (Not Detect) B. pertussis DNA (PCR) (Not Detect) B.parapertussis DNA PCR (Not Detecte) Coronavirus OC43 (PCR) (Not Detect) Coronavirus HKU1 (PCR) (Not Detect) Coronavirus 229E (PCR) (Not Detect) SARS-CoV-2 (PCR) (Negative) Coronavirus NL63 (PCR) (Not Detect) Human Metapneumovir PCR (Not Detect) Influenza A (RT-PCR) (NEGATIVE) Influenza Type A (PCR) (Not Detect) Influenza B (RT-PCR) (NEGATIVE) Influenza Type B (PCR) (Not Detect) M. pneumoniae (PCR) (Not Detect) Parainfluenza 1 (PCR) (Not Detect) Parainfluenza 2 (PCR) (Not Detect) Parainfluenza 3 (PCR) (Not Detect) Parainfluenza 4 (PCR) (Not Detect) RSV (PCR) (Negative) Entero/Rhino (PCR) (Not Detect) ECG Data Interpretation: 2305, sinus tachycardia with rate 121, no obvious ST segment elevation, but horizontal [address] segment depression changes, did appear new from 06/28/2024. MT 126, QRS 96, QTC 511. 0258, sinus tachycardia with rate [address], [address] segment elevation, similar [address] segment depression lateral leads unchanged from prior study this visit. MT 126, QRS 104, QTC 500. MDM Narrative Medical decision making narrative: 49-year-old male with history of remote pulmonary embolus, asthma, recent cough for the last 6 days increasing shortness of breath. Chest x-ray without obvious infiltrates or fluid overload changes. Hypoxia new, titrated up to 4 L oxygen. No lower extremity edema. Labs pending. IV Solu-Medrol and albuterol nebulizer ordered. White blood cell count 40367 elevated. Concern for possible clinical pneumonia with leukocytosis and cough and hypoxia. IV ceftriaxone and oral doxycycline antibiotics. Resp swab pending. Troponin indeterminate, repeat troponin also indeterminate. BNP markedly elevated 63124. IV Lasix. Respiratory panel swab negative for all pathogens tested. EKG with slight lateral horizontal ST segment depression, new since 06/2024. We will discuss with cardiology. Case discussed with cardiology Dr. Osullivan, who feels that patient can be managed here, no heparin, agrees with IV Lasix diuresis, advises obtaining echocardiogram, can further consult as needed. We will contact hospitalist regarding admission. 0500, case discussed with hospitalist Dr. Portillo who accepts patient for admission to inpatient Critical Care Time Critical Care Time Critical Care Time: Yes Total Critical Care Time: 35 Attestation: The high probability of a clinically significant, sudden or life threatening deterioration of the [cardiopulmonary] system(s) required my full and direct attention, intervention and personal management. The aggregate critical care time was [35] minutes. This time is in addition to time spent performing reported procedures but includes the following: [x] Data Review and interpretation [x] Patient assessment and monitoring of vital signs [x] Documentation [x Medication orders and management Discharge Plan Departure Patient Disposition: Admitted As Inpatient Clinical Impression: Dyspnea, Hypoxia, Congestive heart failure, Renal insufficiency Admit Date/Time: 03/21/25 05:04 Admit Provider: Nestor Wheatley
--- NOTE | 2025-03-21 00:28 | DI.CT.S_ITS ---
PROCEDURE: CT CHEST WO CON INDICATIONS: creat elev, cough, WBC 17k TECHNIQUE: Noncontrast 5 mm thick sections acquired from the pulmonary apices to the posterior costophrenic angles. 1 mm lung window, 5 mm thick coronal and sagittal and 7 mm axial MIP reformats were then acquired. For radiation dose reduction, the following was used: automated exposure control, adjustment of mA and/or kV according to patient size. COMPARISON: [facility], CR, XR CHEST 1V, 03/20/2025, 22:58. FINDINGS: Image quality: Diagnostic. Lower Neck: No enlarged lymph nodes. Thyroid: No thyroid nodules which require sonographic follow up, per consensus guidelines. Axillae: No enlarged lymph nodes. Chest Wall: Unremarkable. Bones: Unremarkable. Lungs and Pleura: No pneumothorax or pleural effusions. No consolidation or suspicious nodules. Heart: Heart size is normal. No pericardial effusion. Thoracic Vessels: The aorta and pulmonary arteries demonstrate normal size. Mediastinum and Nabila: No enlarged lymph nodes. Esophagus: No wall thickening. Mild hiatal hernia. Upper Abdomen: Visualized upper abdomen solid organs and bowel loops appear normal. IMPRESSION: Lungs are clear. Dictated by: Aliyah Peter M.D. on 03/21/2025 at 1:11 Approved by: Aliyah Peter M.D. on 03/21/2025 at 1:12
[2025-03-21] MEDS: ALBUTEROL 2.5 MG/3 ML NEB (ADULT) INH ×2 (00:46→07:22)
[2025-03-21 01:04] LABS: Troponin I 0.043 ng/mL (0.01-0.034)
[2025-03-21] MEDS: methylPREDNISolone 125 MG/2 ML VIAL IV (01:07)
[2025-03-21] MEDS: cefTRIAXone 1,000 MG in SODIUM CHLORIDE 0.9% 100 ML 200 MG IV (01:19)
[2025-03-21] MEDS: DOXYCYCLINE HYCLATE 100 MG TABLET PO (01:19)
[2025-03-21 02:22] LABS: Lactate (Lactic Acid) 1.9 mmol/L (0.7-2.1)
[2025-03-21 02:30] LABS: Troponin I 0.041 ng/mL (0.01-0.034)
[2025-03-21 02:31] LABS: Adenovirus Not Detected (Not Detect); B. parapertussis Not Detected (Not Detecte); Bordetella pertussis Not Detected (Not Detect); Chlamydophila pneumoniae Not Detected (Not Detect); Coronavirus 229E Not Detected (Not Detect); Coronavirus HKU1 Not Detected (Not Detect); Coronavirus NL 63 Not Detected (Not Detect); Coronavirus OC43 Not Detected (Not Detect); Human Metapneumovirus Not Detected (Not Detect); Human Rhinovirus/Enterovirus Not Detected (Not Detect); Influenza A Not Detected (Not Detect); Influenza B Not Detected (Not Detect); Mycoplasma pneumoniae Not Detected (Not Detect); Parainfluenza Virus 1 Not Detected (Not Detect); Parainfluenza Virus 2 Not Detected (Not Detect); Parainfluenza Virus 3 Not Detected (Not Detect); Parainfluenza Virus 4 Not Detected (Not Detect); Respiratory Syncytial Virus Not Detected (Not Detect); SARS- CoV-2 Not Detected (Not Detecte)
--- NOTE | 2025-03-21 02:58 | EKG_ITS ---
[place] [id number] [place] [id number] Test Date: 2025-03-21 Pat Name: Earl Kent Department: [facility] Room: Gender: Male Search Consultant: [facility] : 1975 Requested By: Order Number: [id number] Reading MD: Liam Luna MD Measurements Intervals [place] Rate: 110 P: 68 CO: 126 QRS: 44 QRSD: 104 T: -88 QT: 370 QTc: 500 Interpretive Statements Sinus tachycardia ST & T wave abnormality, consider inferolateral ischemia Electronically Signed On 03-21-2025 6:44:54 PDT by Liam Luna MD
[2025-03-21] MEDS: FUROSEMIDE 40 MG/4 ML VIAL IV (04:43)
[2025-03-21 05:28] LABS: BUN Creatinine Ratio 17.7 (6-22); Blood Urea Nitrogen 48 mg/dL (9-20); Calcium 8.9 mg/dL (8.4-10.2); Carbon Dioxide 19 mmol/L (22-32); Chloride 97 mmol/L (98-107); Estimated Glomerular Filt Rate 28 mL/min (>60); Glucose 138 mg/dL (70-99); HEMOLYSIS 185 (0-50); Potassium 5.4 mmol/L (3.4-5.1); Sodium 131 mmol/L (137-145)
--- NOTE | 2025-03-21 05:34 | PC.NURSE ---
pt tolerated riding in wc to hospital room denied any dizziness, upon arrival to hospital room pt needed to urinate, placed wc near the bathroom, pt had to walk tio 4 ft to bathroom and was unable to tolerate it without becoming SOB, pt, assisted to lay back on the bed and placed back on oxygen. denied any dizziness or feeling like he was going to pass out was just very SOB only able to speak in 2-3 word sentences. pt instructed he would now need to stay in his bed, pt's nurse ALVERTO Yao at bedside
--- NOTE | 2025-03-21 06:09 | PM.HP.1 ---
History of Present Illness History of Present Illness Date Patient Seen: 03/21/25 Chief complaint: difficulty breathing Narrative: 49-year-old male with history of reactive airways disease, prior home inhaler use, not usually on oxygen, history of left leg DVT with pulmonary embolus 3 years ago non-provoked was on anticoagulation for 6 months then discontinued, has 6 days duration of increasing shortness of breath, recent cough productive of white-yellow sputum, increasing shortness of breath. Tachycardic, hypoxic, with elevated WBC, non-specific EKG changes, ideterminate troponin, complains on shortness of breath and cough, not on a chest pain. Discussed between ED and cardiology. JOHN - did not have CTA but rather non-contrast CT. Admitted with PNA, CHF, for further evaluation with echocardiogram and treatment [facility] Medical History (Updated 03/21/25 @ 08:16 by Nestor Portillo MD) Chicken pox Hx of blood clots Alcohol use Chronic left hip pain Asthma Hypertension (~2018) Surgical History Anesthesia History of hernia repair (~1991) Family History Father Cancer Hypertension Grandfather Stroke Social History marital status: household members: spouse, family and children lives independently: Yes occupational status: unemployed Previous occupational history: Previously worked in construction Smoking Status: Current some day smoker Tobacco: How many years used: 10 Smokeless tobacco user: chewing tobacco (Since age 32) alcohol intake: current substance use type: marijuana (smokes daily) Meds Home Medications and Allergies Home Medications ?Medication ?Instructions ?Recorded ?Confirmed ?Type albuterol sulfate 90 mcg/actuation 2 puff inhalation Q4-6H PRN 10/01/24 03/21/25 Rx aerosol inhaler shortness of breath or wheezing #6.7 grams inhaler,assist devices,access #1 ea 10/01/24 12/13/24 Rx (Optichamber Adult Mask-Large) hydrochlorothiazide 25 mg tablet 25 mg PO QAM #30 tabs 03/05/25 06/27/25 Rx amlodipine 10 mg tablet 10 mg PO DAILY #30 tabs 12/27/24 03/21/25 Rx losartan 100 mg tablet 100 mg PO DAILY #30 tabs 03/17/25 03/21/25 Rx Allergies Allergy/AdvReac Type Severity Reaction Status Date / Time No Known Drug Allergies Allergy Verified 12/27/24 11:44 Review of Systems Review of Systems Narrative: General - w/o fever or chills RS - short of breath, cough CVS - w/o chest pain Exam Vital Signs (past 8 hours): - 03/20/25 23:02 03/20/25 23:30 03/20/25 23:58 Temperature 98 F Pulse Rate 124 H 119 H 117 H Respiratory Rate 20 20 15 Blood Pressure 125/93 H 124/81 Pulse Oximetry 88 L 94 91 Oxygen Delivery Method Room Air Nasal Cannula Nasal Cannula Oxygen Flow Rate 2 4 03/21/25 00:00 03/21/25 00:00 03/21/25 00:30 Temperature Pulse Rate 117 H 112 H Respiratory Rate 17 20 Blood Pressure 98/56 L Pulse Oximetry 89 L 92 Oxygen Delivery Method Oxygen Flow Rate 03/21/25 00:30 03/21/25 01:02 03/21/25 01:30 Temperature Pulse Rate 114 H 112 H Respiratory Rate 15 22 Blood Pressure 106/57 L Pulse Oximetry 95 93 Oxygen Delivery Method Oxygen Flow Rate 03/21/25 02:00 03/21/25 02:30 03/21/25 03:00 Temperature Pulse Rate 109 H 108 H 109 H Respiratory Rate 20 23 17 Blood Pressure Pulse Oximetry 92 90 L 86 L Oxygen Delivery Method Nasal Cannula Oxygen Flow Rate 4 03/21/25 03:30 03/21/25 04:00 03/21/25 04:30 Temperature Pulse Rate 109 H 108 H 109 H Respiratory Rate 17 20 17 Blood Pressure Pulse Oximetry 90 L 91 92 Oxygen Delivery Method Oxygen Flow Rate 03/21/25 04:59 03/21/25 04:59 03/21/25 05:00 Temperature Pulse Rate 109 H 110 H Respiratory Rate 21 17 Blood Pressure 91/70 Pulse Oximetry 92 92 Oxygen Delivery Method Oxygen Flow Rate 03/21/25 05:00 03/21/25 05:42 Temperature Pulse Rate Respiratory Rate Blood Pressure 94/70 Pulse Oximetry Oxygen Delivery Method Nasal Cannula Oxygen Flow Rate Oxygen Delivery Method Nasal Cannula Oxygen Flow Rate 4 Narrative Exam Narrative: General - in no distress RS - CTA Objective ECG Impression: Sinus tachycardia [address] scan - chest: Radiologist's impression: Lower Neck: No enlarged lymph nodes. Thyroid: No thyroid nodules which require sonographic follow up, per consensus guidelines. Axillae: No enlarged lymph nodes. Chest Wall: Unremarkable. Bones: Unremarkable. Lungs and Pleura: No pneumothorax or pleural effusions. No consolidation or suspicious nodules. Heart: Heart size is normal. No pericardial effusion. Thoracic Vessels: The aorta and pulmonary arteries demonstrate normal size. Mediastinum and Nabila: No enlarged lymph nodes. Esophagus: No wall thickening. Mild hiatal hernia. Upper Abdomen: Visualized upper abdomen solid organs and bowel loops appear normal. IMPRESSION: Lungs are clear. Labs 03/20/25 22:55 03/21/25 04:50 Labs: Laboratory Results - last 24 hr 03/20/25 03/20/25 03/20/25 22:55 23:16 23:16 WBC 17.1 H RBC 3.79 L Hgb 14.6 Hct 42.7 MCV 112.7 H MCH 38.7 H MCHC 34.3 RDW 15.7 H Plt Count 296 Neut % (Auto) 76.3 H Lymph % (Auto) 13.0 L [place] % (Auto) 9.5 Eos % (Auto) 0.1 L Baso % (Auto) 1.1 Neut # (Auto) 16570 H Lymph # (Auto) 2200 [place] # (Auto) 1600 H Eos # (Auto) 0 Baso # (Auto) 200 H Platelet Estimate Adequate on smear RBC Morphology See below Anisocytosis 1+ H Macrocytosis 1+ H PT 14.1 H INR 1.2 Sodium 135 L Potassium 3.7 Chloride 95 L Carbon Dioxide 20 L BUN 42 H Creatinine 2.49 H Estimated GFR 31 L BUN/Creatinine Ratio 16.9 Glucose 133 H Lactate Calcium 9.7 Magnesium 1.8 Total Bilirubin 0.9 AST 58 ALT 56 H Alkaline Phosphatase 101 Troponin I 0.043 H NT-Pro-B Natriuret Pep 81328 H Total Protein 8.4 H Albumin 4.5 Globulin 3.9 Albumin/Globulin Ratio 1.2 Lipase 143 Chlamy pneumoniae PCR Not detected Adenovirus (PCR) Not detected B. pertussis DNA (PCR) Not detected B.parapertussis DNA PCR Not detected Coronavirus OC43 (PCR) Not detected Coronavirus HKU1 (PCR) Not detected Coronavirus 229E (PCR) Not detected SARS-CoV-2 (PCR) Negative Not detected Coronavirus NL63 (PCR) Not detected Human Metapneumovir PCR Not detected Influenza A (RT-PCR) Flu a negative Influenza Type A (PCR) Not detected Influenza B (RT-PCR) Flu b negative Influenza Type B (PCR) Not detected M. pneumoniae (PCR) Not detected Parainfluenza 1 (PCR) Not detected Parainfluenza 2 (PCR) Not detected Parainfluenza 3 (PCR) Not detected Parainfluenza 4 (PCR) Not detected RSV (PCR) Negative Entero/Rhino (PCR) 03/20/25 03/21/25 03/21/25 23:16 01:42 02:01 WBC RBC Hgb Hct MCV MCH MCHC RDW Plt Count Neut % (Auto) Lymph % (Auto) [place] % (Auto) Eos % (Auto) Baso % (Auto) Neut # (Auto) Lymph # (Auto) [place] # (Auto) Eos # (Auto) Baso # (Auto) Platelet Estimate RBC Morphology Anisocytosis Macrocytosis PT INR Sodium Potassium Chloride Carbon Dioxide BUN Creatinine Estimated GFR BUN/Creatinine Ratio Glucose Lactate 1.9 Calcium Magnesium Total Bilirubin AST ALT Alkaline Phosphatase Troponin I 0.041 H NT-Pro-B Natriuret Pep Total Protein Albumin Globulin Albumin/Globulin Ratio Lipase Chlamy pneumoniae PCR Adenovirus (PCR) B. pertussis DNA (PCR) B.parapertussis DNA PCR Coronavirus OC43 (PCR) Coronavirus HKU1 (PCR) Coronavirus 229E (PCR) SARS-CoV-2 (PCR) Coronavirus NL63 (PCR) Human Metapneumovir PCR Influenza A (RT-PCR) Influenza Type A (PCR) Influenza B (RT-PCR) Influenza Type B (PCR) M. pneumoniae (PCR) Parainfluenza 1 (PCR) Parainfluenza 2 (PCR) Parainfluenza 3 (PCR) Parainfluenza 4 (PCR) RSV (PCR) Not detected Entero/Rhino (PCR) Not detected 03/21/25 04:50 WBC RBC Hgb Hct MCV MCH MCHC RDW Plt Count Neut % (Auto) Lymph % (Auto) [place] % (Auto) Eos % (Auto) Baso % (Auto) Neut # (Auto) Lymph # (Auto) [place] # (Auto) Eos # (Auto) Baso # (Auto) Platelet Estimate RBC Morphology Anisocytosis Macrocytosis PT INR Sodium 131 L Potassium 5.4 H D Chloride 97 L Carbon Dioxide 19 L BUN 48 H Creatinine 2.71 H Estimated GFR 28 L BUN/Creatinine Ratio 17.7 Glucose 138 H Lactate Calcium 8.9 Magnesium Total Bilirubin AST ALT Alkaline Phosphatase Troponin I NT-Pro-B Natriuret Pep Total Protein Albumin Globulin Albumin/Globulin Ratio Lipase Chlamy pneumoniae PCR Adenovirus (PCR) B. pertussis DNA (PCR) B.parapertussis DNA PCR Coronavirus OC43 (PCR) Coronavirus HKU1 (PCR) Coronavirus 229E (PCR) SARS-CoV-2 (PCR) Coronavirus NL63 (PCR) Human Metapneumovir PCR Influenza A (RT-PCR) Influenza Type A (PCR) Influenza B (RT-PCR) Influenza Type B (PCR) M. pneumoniae (PCR) Parainfluenza 1 (PCR) Parainfluenza 2 (PCR) Parainfluenza 3 (PCR) Parainfluenza 4 (PCR) RSV (PCR) Entero/Rhino (PCR) Assessment & Plan Assessment and plan (1) Acute hypoxic respiratory failure: Status: Acute (2) Acute CHF: Status: Acute (3) JOHN (acute kidney injury): Status: Acute (4) Pneumonia: Status: Acute (5) Hx of blood clots: Status: Acute (6) Asthma: Qualifiers: Asthma complication type: uncomplicated Asthma persistence: unspecified Asthma severity: unspecified severity Qualified Code(s): J45.909 - Unspecified asthma, uncomplicated Status: Acute (7) Hypertension: Qualifiers: Hypertension type: unspecified Qualified Code(s): I10 - Essential (primary) hypertension Status: Acute (8) Hyperlipidemia: Problem details: 2024: 10-year ASCVD risk 3.8% untreated (low, optimal 1.3%). Emphasize lifestyle to reduce risk factors. Qualifiers: Hyperlipidemia type: pure hypercholesterolemia Qualified Code(s): E78.00 - Pure hypercholesterolemia, unspecified Status: Acute (9) Alcohol use: Status: Acute Assessment & Plan narrative: Acute hypoxic respiratory failure / PNA / CHF? / recurrent PE? - oxygen prn - suspected PE. CTA was not done b/o JOHN, to be considered with improved renal function, He has a history of PE but is off anticoagulation. - echocardiogram to assess RV strain - suspected PNA - Rocephin Asthma - not exacerbated, not wheezy - albuterol HTN - all three home antihypertensives on hold, HCTZ 25 mg daily, Losartan 100 mg daily, Norvasc 10 mg daily - hypotensive with JOHN Alcohol use - 3 shots daily - prn lorazepam DVT prophylaxis - Lovenox Patient consented to telemedicine, audio-visual encounter with RN assisting during the exam. Patient located at [place], [place], provider located in [place]. Time-Based Coding :: [TOTAL MINUTES] spent with patient and on the chart (including review of chart, obtaining history, exam, reviewing outside data, placing orders, documenting exam and treatment plan, and counseling patient) on [DATE].
--- NOTE | 2025-03-21 07:11 | DI.ECHO.S_ITS ---
[facility]+ [facility] : : [address] : : [place] : : [id number] : : Phone: [phone] Echocardiogram Report + :Name: VERONIKA CROW Study Date: 03/21/2025 Height: 72 in : :[facility] ReadingLocation: Weight: 308 lb : : Gender: Male BSA: 2.6 m2 : :: 1975 Age: 49 yrs BP: 133/93 mmHg: :Reason For Study: SHORTNESS OF BREATH : :Ordering Physician: PAULETTE : :SALVATORE CONNELL Performed By: Zaid Devine : :Referring: SALVATORE MALDONADO : + Interpretation Summary Severely dilated RV with severely reduced RV systolic function. Severe pHTN and severe tricuspid regurgitation leading to severely dilated RA. LV is compressed by the large sized RV and appears underfilled. LV systolic function is probably preserved. Other findings as below. Findings are most consistent with decompensated RV failure. Procedure: A two-dimensional transthoracic echocardiogram with color flow and Doppler was performed. A contrast injection of Definity was performed to improve assessment of LV function. The study quality was technically difficult. The study quality was technically limited. There is no prior echocardiogram noted for this patient. The patient was in normal sinus rhythm during the exam. Left Ventricle: The left ventricle is normal in size. Left ventricular wall thickness is mild-moderately increased. There is no ventricular septal defect visualized. Left ventricular systolic function is probably normal. The interventricular septum is flattened, consistent with a right ventricular pressure/volume condition. Right Ventricle: The right ventricle is severely dilated. Right ventricular systolic function is severely reduced. Atria: The left atrium is not well visualized. The right atrium is severely dilated. The interatrial septum is not well visualized. Mitral Valve: The mitral valve is grossly normal. There is no mitral regurgitation noted. Aortic Valve: The aortic valve is not well visualized. No aortic regurgitation is present. Tricuspid Valve: The tricuspid annulus is dilated. There is severe tricuspid regurgitation. There is severe pulmonary hypertension. Right ventricular systolic pressure is estimated to be 59 mmHg plus the clinically estimated CVP which cannot be estimated on this exam. Pulmonic Valve: The pulmonic valve is not well visualized. There is no pulmonic valvular regurgitation. Great Vessels: The aortic root is normal size. The ascending aorta could not be visualized. The pulmonary is not well visualized. The inferior vena cava was not visualized. Pericardium/ Pleura There is no pericardial effusion. MMode/2D Measurements & Calculations LVIDd: 4.2 cm LVOT diam: 2.0 cm LVIDs: 3.3 cm Ao root diam: 3.4 cm FS: 21.7 % EPSS: 0.72 cm IVSd: 1.7 cm LVPWd: 1.2 cm LV english. diameter/BSA (cm/m^2): 1.6 LV sys. diameter/BSA (cm/m^2): 1.3 LA A4 area: 16.2 cm2 RA long axis: 6.5 cm LA length (vol): 5.6 cm RA area: 35.8 cm2 RA vol: 167.3 ml RA : 65.4 ml/m2 RVD1 (basal): 4.8 cm RVD2 (mid): 4.1 cm TAPSE: 0.73 cm Doppler Measurements & Calculations Ao V2 max: 72.8 cm/sec LVOT Max Vicente: 54.8 cm/sec Ao V2 mean: 53.8 cm/sec LV V1 max P.2 mmHg Ao max P.1 mmHg LV V1 VTI: 6.0 cm Ao mean P.3 mmHg CHUCK(I,D): 2.3 cm2 Ao V2 VTI: 8.3 cm CHUCK(V,D): 2.4 cm2 sev ratio: 0.73 CHUCK indexed to BSA (cm^2/m^2): 0.90 MV E max vicente: 25.2 cm/sec TR max vicente: 384.4 cm/sec MV A max vicente: 34.2 cm/sec TR max P.1 mmHg MV E/A: 0.74 Med Peak E' Vicente: 8.2 cm/sec E/E' med: 3.1 Lat Peak E' Vicente: 10.7 cm/sec E/E' lat: 2.4 E/e' average: 2.7 MV dec time: 0.11 sec SV(LVOT): 19.1 ml Reading Physician:11:05 AM
--- NOTE | 2025-03-21 07:26 | PM.HP.1 ---
History of Present Illness History of Present Illness Date Patient Seen: 03/21/25 Chief complaint: difficulty breathing Narrative: Summary: Patient was a 49-year-old male with a history of reactive airways. The patient has a history of left leg DVT and pulmonary embolism about 3 years ago away and was anticoagulated for 6 months. He presents to the ED with a 6 day history of progressive dyspnea. ED course: Patient had evidence of acute kidney injury with a creatinine 2.7 and a potassium of 5.4. WBC was 17.1. BP was 94/70. S: Not obtainable. Significant event: The patient was doing well at the turn of shift at 7:00 a.m.. The patient was then found to be quite short of breath and laboring with his breathing at about 830. I was alert and saw the patient briefly and found him to be diaphoretic, with normal saturations but an obvious distress. I ordered BiPAP and within the next 5 minutes heard a code blue called. The patient was found to be pulseless with a rhythm. Resuscitation summary: The patient had immediate CPR started. The patient received CPR for a total of approximately 45 minutes. The patient had what appeared to be a PA arrest with high suspicion for pulmonary embolism given his clear chest x-ray and clear lung CT without contrast. The patient had a prior history of pulmonary embolism and was intubated early in the resuscitation process by Dr. Jean, emergency physician. We discussed the pros and cons of thrombolytics and ultimately decided to give the patient tPA 100 mg IV infusion over 2 hours. The patient would receive CPR and 2 minute cycles with pulse checks. He had a rhythm for the entire 45 minutes but would go bradycardic and lose pulses and have interval doses of epinephrine given. He received approximately 10 doses over the 45 minutes. He also received calcium, and bicarbonate. Ultimately the patient was able to attain Tonya for periods of up to 2 minutes before going back into PE. At about the 45 minute gadiel he was able to maintain Bushnell with the norepinephrine which have been started in the background to provide additional pressure support. The patient was transferred to the ICU and placed on the ventilator. The patient had profound hypoxemia for the next several hours which slowly improved. Initially had evidence of tonic-clonic activity of the eyelids and eyes. At approximately 3 in the afternoon he was able to follow commands from his without any question. The patient had PO2 of 66 initially with sats of 45%. By the mid afternoon his sats were up to 80% on FiO2 100%. A ICU was involved early in his care after transfer to the ICU. [facility] Medical History Chicken pox Hx of blood clots Alcohol use Chronic left hip pain Asthma Hypertension (~2018) Surgical History Anesthesia History of hernia repair (~1991) Family History Father Cancer Hypertension Grandfather Stroke Social History marital status: household members: spouse, family and children lives independently: Yes occupational status: unemployed Previous occupational history: Previously worked in construction Smoking Status: Current some day smoker Tobacco: How many years used: 10 Smokeless tobacco user: chewing tobacco (Since age 32) alcohol intake: current substance use type: marijuana (smokes daily) Meds Home Medications and Allergies Home Medications ?Medication ?Instructions ?Recorded ?Confirmed ?Type albuterol sulfate 90 mcg/actuation 2 puff inhalation Q4-6H PRN 10/01/24 03/21/25 Rx aerosol inhaler shortness of breath or wheezing #6.7 grams inhaler,assist devices,access #1 ea 10/01/24 03/21/25 Rx (Optichamber Adult Mask-Large) hydrochlorothiazide 25 mg tablet 25 mg PO QAM #30 tabs 11/27/24 03/21/25 Rx amlodipine 10 mg tablet 10 mg PO DAILY #30 tabs 12/27/24 03/21/25 Rx losartan 100 mg tablet 100 mg PO DAILY #30 tabs 03/17/25 03/21/25 Rx Allergies Allergy/AdvReac Type Severity Reaction Status Date / Time No Known Drug Allergies Allergy Verified 12/27/24 11:44 Review of Systems Review of Systems Narrative: Not obtainable as patient was under duress and then intubated. Exam Vital Signs (past 8 hours): - 03/20/25 23:30 03/20/25 23:58 03/21/25 00:00 Temperature Pulse Rate 119 H 117 H 117 H Respiratory Rate 20 15 17 Blood Pressure 124/81 Pulse Oximetry 94 91 89 L Oxygen Delivery Method Nasal Cannula Nasal Cannula Oxygen Flow Rate 2 4 03/21/25 00:00 03/21/25 00:30 03/21/25 00:30 Temperature Pulse Rate 112 H Respiratory Rate 20 Blood Pressure 98/56 L 106/57 L Pulse Oximetry 92 Oxygen Delivery Method Oxygen Flow Rate 03/21/25 01:02 03/21/25 01:30 03/21/25 02:00 Temperature Pulse Rate 114 H 112 H 109 H Respiratory Rate 15 22 20 Blood Pressure Pulse Oximetry 95 93 92 Oxygen Delivery Method Nasal Cannula Oxygen Flow Rate 4 03/21/25 02:30 03/21/25 03:00 03/21/25 03:30 Temperature Pulse Rate 108 H 109 H 109 H Respiratory Rate 23 17 17 Blood Pressure Pulse Oximetry 90 L 86 L 90 L Oxygen Delivery Method Oxygen Flow Rate 03/21/25 04:00 03/21/25 04:30 03/21/25 04:59 Temperature Pulse Rate 108 H 109 H 109 H Respiratory Rate 20 17 21 Blood Pressure Pulse Oximetry 91 92 92 Oxygen Delivery Method Oxygen Flow Rate 03/21/25 04:59 03/21/25 05:00 03/21/25 05:00 Temperature Pulse Rate 110 H Respiratory Rate 17 Blood Pressure 91/70 94/70 Pulse Oximetry 92 Oxygen Delivery Method Oxygen Flow Rate 03/21/25 05:30 03/21/25 05:42 03/21/25 06:03 Temperature 97.7 F Pulse Rate 113 H Respiratory Rate 30 H Blood Pressure 92/72 Pulse Oximetry 97 93 Oxygen Delivery Method Nasal Cannula Nasal Cannula Oxygen Flow Rate 4 4 Oxygen Delivery Method Nasal Cannula Oxygen Flow Rate 4 Narrative Exam Narrative: Patient is on the ventilator, eyes are open. At the 50 100 exam he was able to track, and follow commands when asked to move his fingers on either hand or toes on either foot. Patient is on the ventilator. ?Harman catheter in place. Lungs are clear. Heart is regular. Abdomen is non distended, and soft. Extremities are free of edema. Skin is free of rash or lesions. Joints are not swollen or deformed. He is calm, off sedation. Objective ECG Impression: Sinus tachycardia ST & T wave abnormality, consider inferolateral ischemia Imaging Chest x-ray: Radiologist's impression: Lungs are clear. CT scan - chest: Radiologist's impression: No acute pulmonary process. Labs 03/21/25 10:51 03/21/25 08:09 Labs: Laboratory Results - last 24 hr 03/20/25 03/20/25 03/20/25 22:55 23:16 23:16 WBC 17.1 H RBC 3.79 L Hgb 14.6 Hct 42.7 MCV 112.7 H MCH 38.7 H MCHC 34.3 RDW 15.7 H Plt Count 296 Neut % (Auto) 76.3 H Lymph % (Auto) 13.0 L Ste[place] % (Auto) 9.5 Eos % (Auto) 0.1 L Baso % (Auto) 1.1 Neut # (Auto) 90931 H Lymph # (Auto) 2200 [place] # (Auto) 1600 H Eos # (Auto) 0 Baso # (Auto) 200 H Platelet Estimate Adequate on smear RBC Morphology See below Anisocytosis 1+ H Macrocytosis 1+ H PT 14.1 H INR 1.2 Sodium 135 L Potassium 3.7 Chloride 95 L Carbon Dioxide 20 L BUN 42 H Creatinine 2.49 H Estimated GFR 31 L BUN/Creatinine Ratio 16.9 Glucose 133 H Lactate Calcium 9.7 Magnesium 1.8 Total Bilirubin 0.9 AST 58 ALT 56 H Alkaline Phosphatase 101 Troponin I 0.043 H NT-Pro-B Natriuret Pep 54764 H Total Protein 8.4 H Albumin 4.5 Globulin 3.9 Albumin/Globulin Ratio 1.2 Lipase 143 Chlamy pneumoniae PCR Not detected Adenovirus (PCR) Not detected B. pertussis DNA (PCR) Not detected B.parapertussis DNA PCR Not detected Coronavirus OC43 (PCR) Not detected Coronavirus HKU1 (PCR) Not detected Coronavirus 229E (PCR) Not detected SARS-CoV-2 (PCR) Negative Not detected Coronavirus NL63 (PCR) Not detected Human Metapneumovir PCR Not detected Influenza A (RT-PCR) Flu a negative Influenza Type A (PCR) Not detected Influenza B (RT-PCR) Flu b negative Influenza Type B (PCR) Not detected M. pneumoniae (PCR) Not detected Parainfluenza 1 (PCR) Not detected Parainfluenza 2 (PCR) Not detected Parainfluenza 3 (PCR) Not detected Parainfluenza 4 (PCR) Not detected RSV (PCR) Negative Entero/Rhino (PCR) 03/20/25 03/21/25 03/21/25 23:16 01:42 02:01 WBC RBC Hgb Hct MCV MCH MCHC RDW Plt Count Neut % (Auto) Lymph % (Auto) Steuben % (Auto) Eos % (Auto) Baso % (Auto) Neut # (Auto) Lymph # (Auto) Ste[place] # (Auto) Eos # (Auto) Baso # (Auto) Platelet Estimate RBC Morphology Anisocytosis Macrocytosis PT INR Sodium Potassium Chloride Carbon Dioxide BUN Creatinine Estimated GFR BUN/Creatinine Ratio Glucose Lactate 1.9 Calcium Magnesium Total Bilirubin AST ALT Alkaline Phosphatase Troponin I 0.041 H NT-Pro-B Natriuret Pep Total Protein Albumin Globulin Albumin/Globulin Ratio Lipase Chlamy pneumoniae PCR Adenovirus (PCR) B. pertussis DNA (PCR) B.parapertussis DNA PCR Coronavirus OC43 (PCR) Coronavirus HKU1 (PCR) Coronavirus 229E (PCR) SARS-CoV-2 (PCR) Coronavirus NL63 (PCR) Human Metapneumovir PCR Influenza A (RT-PCR) Influenza Type A (PCR) Influenza B (RT-PCR) Influenza Type B (PCR) M. pneumoniae (PCR) Parainfluenza 1 (PCR) Parainfluenza 2 (PCR) Parainfluenza 3 (PCR) Parainfluenza 4 (PCR) RSV (PCR) Not detected Entero/Rhino (PCR) Not detected 03/21/25 04:50 WBC RBC Hgb Hct MCV MCH MCHC RDW Plt Count Neut % (Auto) Lymph % (Auto) [place] % (Auto) Eos % (Auto) Baso % (Auto) Neut # (Auto) Lymph # (Auto) [place] # (Auto) Eos # (Auto) Baso # (Auto) Platelet Estimate RBC Morphology Anisocytosis Macrocytosis PT INR Sodium 131 L Potassium 5.4 H D Chloride 97 L Carbon Dioxide 19 L BUN 48 H Creatinine 2.71 H Estimated GFR 28 L BUN/Creatinine Ratio 17.7 Glucose 138 H Lactate Calcium 8.9 Magnesium Total Bilirubin AST ALT Alkaline Phosphatase Troponin I NT-Pro-B Natriuret Pep Total Protein Albumin Globulin Albumin/Globulin Ratio Lipase Chlamy pneumoniae PCR Adenovirus (PCR) B. pertussis DNA (PCR) B.parapertussis DNA PCR Coronavirus OC43 (PCR) Coronavirus HKU1 (PCR) Coronavirus 229E (PCR) SARS-CoV-2 (PCR) Coronavirus NL63 (PCR) Human Metapneumovir PCR Influenza A (RT-PCR) Influenza Type A (PCR) Influenza B (RT-PCR) Influenza Type B (PCR) M. pneumoniae (PCR) Parainfluenza 1 (PCR) Parainfluenza 2 (PCR) Parainfluenza 3 (PCR) Parainfluenza 4 (PCR) RSV (PCR) Entero/Rhino (PCR) Assessment & Plan Assessment & Plan narrative: 1. JOHN, present on admission and active. 2. Hyperkalemia, present on admission and active. 3. PA cardiac arrest, new and improved. 4. Presumed pulmonary embolism as cause of arrest, new and active. 5. Profound mixed metabolic and respiratory acidosis, new and active. 6. Acute profound severe hypoxemic respiratory failure, new and active. 7. Cardiogenic shock as a result of massive pulmonary embolism, new and active. PLAN: -ICU was consulted, we will add vasopressin and norepinephrine. -wean FiO2 as able. -PICC line for central access, check PTT and start heparin drip near 1800. -recheck ABG. -arterial line for pressure monitoring and serial ABG. -anticipate transfer within the next 12-18 hours based on stability. Anticipate that he will likely develop ATN and it was at high risk for transient hemodialysis. -the patient may still require a invasive thrombectomy depending on his clinical course. -monitor neuro status. Spent 2 hours of critical care time with this patient in total over the course of his resuscitation and further care. The patient was critically ill and has a guarded prognosis. Time-Based Coding :: Quality MIPS - Admit I confirm the patient?s Advance Care Plan is present, Code status is documented, Surrogate decision maker is in patient?s record [If Yes, STOP here]: Yes MIPS - Meds 'Current medications' to include all prescriptions, [id number] products, herbals, cannabis/cannabidiol products, and vitamin/mineral/dietary (nutritional) supplements. I have utilized all available resources to obtain, update, or review the patient?s current medications. [If Yes, STOP here]: Yes
[2025-03-21] MEDS: ENOXAPARIN 40 MG/0.4 ML SYRINGE SUBCUT (08:50)
[2025-03-21] MEDS: AZITHROMYCIN 500 MG in DEXTROSE 5% IN WATER 250 ML 250 MG IV (08:50)
[2025-03-21 08:53] LABS: Add Manual Diff / Slide Review NO; Basophils Absolute Auto 0 /uL (0-100); Basophils Percent Auto 0.1 % (0-2); Eosinophils Absolute Auto 0 /uL (0-450); Hematocrit 40.3 % (41-53); Hemoglobin 13.7 g/dL (13.5-17.5); Lymphocytes Absolute Auto 1000 /uL (1100-4500); Lymphocytes Percent Auto 7.9 % (25-40); Mean Corpuscular HGB Conc 34.1 % (30-36); Mean Corpuscular Hemoglobin 38.7 PG (26-34); Mean Corpuscular Volume 113.5 fL (80-100); Monocytes Absolute Auto 300 /uL (0-900); Monocytes Percent Auto 2.6 % (3-14); Neutrophils Absolute Auto 10900 /uL (1500-7000); Neutrophils Percent Auto 89.4 % (50-75); Platelet Count 269 X10^3/uL (150-400); Red Blood Cell Count 3.55 X10^6/uL (4.5-5.9); Red Cell Distribution Width 15.2 % (11.6-14.8); White Blood Cell Count 12.2 X10^3/uL (4.5-11.0)
[2025-03-21 08:59] LABS: BUN Creatinine Ratio 14.7 (6-22); Blood Urea Nitrogen 49 mg/dL (9-20); Calcium 9.2 mg/dL (8.4-10.2); Carbon Dioxide 15 mmol/L (22-32); Chloride 98 mmol/L (98-107); Estimated Glomerular Filt Rate 22 mL/min (>60); Glucose 190 mg/dL (70-99); HEMOLYSIS < 15 (0-50); Magnesium 1.8 mg/dL (1.6-2.3); Sodium 133 mmol/L (137-145)
[2025-03-21 09:07] LABS: Anisocytosis 1+
[2025-03-21 09:08] LABS: NT-proBNP (BNP-Adult 18+) 18700 pg/mL (<125)
--- NOTE | 2025-03-21 10:02 | DI.US.S_ITS ---
PROCEDURE: US PERIP VENOUS LOW EXTREM BI INDICATIONS: Rule out DVTs TECHNIQUE: Real-time imaging, as well as color and pulse Doppler interrogation, were performed of the deep veins of both legs from the inguinal ligament to the popliteal fossa, with documentation of the visualized calf veins. COMPARISON: [facility], , [facility] VENOUS LOW EXTREM BI, 06/28/2024, 13:18. FINDINGS: Right: The common femoral, femoral, popliteal, and the visualized calf veins are normally compressible, and free of intraluminal thrombus. Color and pulse Doppler demonstrate normal phasic intravascular flow. There is normal augmentation response to distal compression maneuver. Left: The common femoral, femoral, popliteal, and the visualized calf veins are normally compressible, and free of intraluminal thrombus. Color and pulse Doppler demonstrate normal phasic intravascular flow. There is normal augmentation response to distal compression maneuver. IMPRESSION: No findings of deep venous thrombosis in either lower extremity. Dictated by: Daniele Dodson M.D. on 03/21/2025 at 13:13 Approved by: Daniele Dodson M.D. on 03/21/2025 at 13:13
--- NOTE | 2025-03-21 10:12 | CM.DANOTE ---
B DCP Assessment Note pt is a 49yo M admitted with JOHN/CHF/chest pain. white count up, potentially pneumonia? code blue called. see provider/nursing notes for more. PCP Miguel Payer [facility] [employer] and self pay COMMERCIAL DIRECTOR reviewed EMR. per chart, pt lives in [facility] with spouse/children. per RN, may have pneumonia. per chart review, pt drinks around 3 alcoholic beverages per day. COMMERCIAL DIRECTOR did not meet with pt due to active code blue. will continue to follow as able. Medical POC continues. P: pending medical POC. CM team will continue to follow closely for any DCP needs. KEELY Webb Discharge Planning/Care Management CM Discharge Assessment Start: 03/21/25 05:42 Freq: Status: Active Protocol: Document 03/21/25 10:08 SL (Rec: 03/21/25 10:11 SL Desktop) Discharge Planning Assessment Assigned Discharge KEELY Tracy Associate Music Professor DPOA/Assigned Najma spouse Designee Name Contact Information [phone] Advance Directives? No History Provided By Patient Prior Living House Arrangements Household Members spouse,family,children Transportation pending medical POC Arrangement Review Status In Process Please Provide Date 03/21/25 Initial DC Assessment Was Performed Next Review Type Continued Stay Review
[2025-03-21] MEDS: EPINEPHrine 1 MG/ML 0.5 MG IV (11:27)
[2025-03-21] MEDS: NOREPINEPHRINE BITARTRATE/D5W 4 MG/250 ML PLAST..BAG 210 MG IV (11:28)
[2025-03-21] MEDS: SODIUM CHLORIDE 0.9% 1,000 ML 100 ML IV (11:33)
[2025-03-21 11:38] LABS: PTT Partial Thromboplastin Tim 129 SECONDS (25.1-36.5)
[2025-03-21 11:39] LABS: Add Manual Diff / Slide Review NO; Basophils Absolute Auto 0 /uL (0-100); Basophils Percent Auto 0.3 % (0-2); Eosinophils Absolute Auto 200 /uL (0-450); Eosinophils Percent Auto 1.3 % (2-4); Hematocrit 40.6 % (41-53); Hemoglobin 13.1 g/dL (13.5-17.5); Lymphocytes Absolute Auto 2700 /uL (1100-4500); Lymphocytes Percent Auto 15.8 % (25-40); Mean Corpuscular HGB Conc 32.3 % (30-36); Mean Corpuscular Hemoglobin 38.8 PG (26-34); Mean Corpuscular Volume 119.8 fL (80-100); Monocytes Absolute Auto 400 /uL (0-900); Monocytes Percent Auto 2.3 % (3-14); Neutrophils Absolute Auto 13800 /uL (1500-7000); Neutrophils Percent Auto 80.3 % (50-75); Platelet Count 134 X10^3/uL (150-400); Red Blood Cell Count 3.39 X10^6/uL (4.5-5.9); Red Cell Distribution Width 15.8 % (11.6-14.8); White Blood Cell Count 17.3 X10^3/uL (4.5-11.0)
[2025-03-21 11:47] LABS: Anisocytosis 1+
[2025-03-21 11:47] LABS: Base Excess ABG -22.8 mmol/L (-2-3); Blood Gas Collection Site Left Brachial; Blood Gas Mode Assist Cont Ventilat; Delivery System Adult Ventilator; HCO3 ABG 13 mmol/L (23-27); Oxygen Saturation ABG 68 % (95-100); PCO2 ABG 86.4 mmHg (35-45); PEEP 5; PO2 ABG 66 mmHg (80-100); Respiratory Rate 20; TCO2 ABG 14 mmol/L (23-27)
--- NOTE | 2025-03-21 12:16 | PC.NURSE ---
Katy Hughes was initiated at 0939 I was in Pt room @0925to give meds Pt was tachypnic and HR was bouncing between 40's and 70's. Pt was also anxious and I asked Dr. Castillo to come and see him. After seeing Pt Dr Castillo said to give Pt PO Ativan and call RT about putting Pt on bipap. I called RT and informed them, went to grab Ativan and give to Pt. As I was going to room Katy hughes was called by DEVENDRA Lucas. Upon arrival Pt was dusky in face and ext, no pulse breathing I immediately began CPR. Other code team members and doctor arrived immediately. @ 0942 IV was established in RAC by ER nurse and 1 mg IV Epinephrine was given and 1 liter bolus of NS started. For other med administration see NOV. Carotid and femoral pulse were felt @1002 for first time but then quickly lost and CPR resumed. Pt would go back and forth between weak pulse and no pulse for some time until 1019 when pulse was maintained in 100's for 5 minutes and then went away and CPR resumed and more EPI given. @ 1034 pulse was detected and CPR stopped and BP was 100/76. Pt BP @ 1041 112/77 HR low 100's. Pt was tranferred to ICU @1057 and care given to ICU Qi. I never gave PO ativan to Pt med was returned to [facility] late w/RN , due to katy ellen.
[2025-03-21 12:38] LABS: Troponin I 0.163 ng/mL (0.01-0.034)
[2025-03-21] MEDS: FAMOTIDINE 20 MG/2 ML VIAL IV (13:29)
[2025-03-21] MEDS: CHLORHEXIDINE GLUCONATE 15 ML CUP PO (13:29)
[2025-03-21] MEDS: NOREPINEPHRINE BITARTRATE/D5W 4 MG/250 ML PLAST..BAG 189 MG IV ×2 (13:30→14:14)
[2025-03-21 13:39] LABS: Base Excess ABG -22.8 mmol/L (-2-3); HCO3 ABG 13 mmol/L (23-27); Oxygen Saturation ABG 71 % (95-100); PCO2 ABG 77.7 mmHg (35-45); PO2 ABG 68 mmHg (80-100); TCO2 ABG 14 mmol/L (23-27); pH ABG 6.82 (7.35-7.45)
[2025-03-21 13:43] LABS: POC Glucose 259 mg/dL (70-99)
--- NOTE | 2025-03-21 14:23 | PC.NURSE ---
Pt arrived to ICU from ACU post code persistently hypoxic in the 40-50%s despite mechanical ventilation at 100% fio2, hypothermic, requiring vasopressors, intermittent jerky movements. Discussed pt status with attending physician Dr Castillo and consulting director e learning Dr Garcia at bedside. See new orders.
--- NOTE | 2025-03-21 14:30 | DIET.CONS ---
Dietary Consultation Note Admission Date: 03/21/2025 05:04 Assessment: 49 y M admitted for resp failure. Intubated this morning on floor. Dietitian consulted for NPO on vent. EMR reviewed. Spoke to hospitalist- will hold off on enteral feeds today and re-assess tomorrow. Pt with hx of 3 EtOH drinks per day. Propofol at 5 mcg/kg/min providing 111 kcals daily. Ht: 182.88 cm Wt: 140 kg BMI: 44.0 UBW: 12/27/24 at 142.938 kg, 10/01/24 at 149.912 kg (-7% weight loss within 7 months, non-severe) Last BM: 03/20/25 (03/21/25 05:42) MNA: Santana Score: 21 Diet: 03/21/25 11:09 NPO Diet Diet Modifications: NPO Type: Strict Labs: RBC 3.55 X10^6/uL (4.5-5.9) L 03/21/25 08:09 Hgb 13.7 g/dL (13.5-17.5) 03/21/25 08:09 Hct 40.3 % (41-53) L 03/21/25 08:09 Creatinine 3.34 mg/dL (0.66-1.25) H 03/21/25 08:09 Lactate 1.9 mmol/L (0.7-2.1) 03/21/25 02:01 NT-Pro-B Natriuret Pep 03145 pg/mL (<125) H 03/21/25 08:09 Nutrition Diagnosis: Inadequate oral intake r/t mechanical ventilation aeb pt NPO status Interventions: Recc starting enteral nutrition within first 48 hours if patient hemodynamically stable 1. Continuous enteral nutrition of Pivot 1.5 starting at 20 mL/hr and advancing as tolerated 10 mL Q8H until goal rate of 40 mL/hr. Flush 60 mL Q6H. Goal rate plus propofol provides 1551 kcals (94% EER) and 90 g protein (100% EER). Total fluids from formula and flush at goal rate is 960 mL. Fluid needs being met through IV fluids. EER: 7614-6143 (12-14 kcals/kg per ASPEN critical care guidelines) 75-90 g protein (.8-1 g/kg of adjusted IBW r/t JOHN) Monitoring/Evaluations: start of tube feeds, labs, tolerance Electronically Signed by: Nilda Silverio 03/21/25 14:30 Clinical Dietitian [address] [address]
[2025-03-21] MEDS: NOREPINEPHRINE BITARTRATE/D5W 4 MG/250 ML PLAST..BAG 199.5 MG IV (15:06)
--- NOTE | 2025-03-21 16:12 | DI.ECHO.S_ITS ---
[facility] : : [address] : : [place] : : [phone] : : Phone: [phone] Echocardiogram Report + + :Name: VERONIKA CROW Study Date: 03/21/2025 Height: 72 in : :[facility] ReadingLocation: Weight: 308 lb: : Gender: Male BSA: 2.6 m2 : :: 1975 Age: 49 yrs BP: 88/56 mmHg: :Reason For Study: POST CODE : :Ordering Physician: CECILIA, : :MARCUS Farah Performed By: Zaid Devine : :Referring: MARCUS BROOKS : + + Interpretation Summary Limited Echo: 1) Severely enlarged right ventricle with moderately to severely reduced function. 2) The interventricular septum is flattened, consistent with a right ventricular pressure/volume condition. 3) The right ventricular systolic pressure is estimated to be at least 57 mmHg based on an estimated right atrial pressure of 15 mm Hg. 4) [facility], no significant change. Procedure: A two-dimensional transthoracic echocardiogram with color flow and Doppler was performed in limited views only. The study quality was technically difficult. Comparison is made with the echocardiogram of 03/21/2025. The patient was in normal sinus rhythm during the exam. Left Ventricle: The left ventricle is normal in size. The interventricular septum is flattened, consistent with a right ventricular pressure/volume condition. Right Ventricle: The right ventricle is severely dilated. Right ventricular systolic function is moderate to severely reduced. Tricuspid Valve: The right ventricular systolic pressure is estimated to be at least 57 mmHg based on an estimated right atrial pressure of 15 mm Hg. Great Vessels: The IVC is dilated and has no respiratory collapse suggesting significantly high central venous pressure. MMode/2D Measurements & Calculations LVIDd: 3.1 cm IVC diam: 2.7 cm LVIDs: 2.4 cm FS: 22.9 % IVSd: 1.7 cm LVPWd: 1.6 cm LV english. diameter/BSA (cm/m^2): 1.2 LV sys. diameter/BSA (cm/m^2): 0.94 Doppler Measurements & Calculations TR max jie: 327.4 cm/sec TR max P.9 mmHg Reading Physician:09:47 PM
[2025-03-21] MEDS: VASOPRESSIN 40 UNIT in SODIUM CHLORIDE 0.9% 100 ML 4.5 UNIT IV (16:17)
[2025-03-21] MEDS: EPINEPHrine 4 MG in DEXTROSE 5% IN WATER 246 ML 7.5 MG IV (17:11)
--- NOTE | 2025-03-21 17:29 | RT ---
Called to Code Blue, pt bagged with 100% fio2 and cpr in progress. MD at bedside and pulses abtained at 1656. Pt placed back on vent with current settings.
--- NOTE | 2025-03-21 17:38 | PC.NURSE ---
Addendum entered by Qi Oliveros R.N. 03/21/25 19:51: Unable to chart norepinephrine titration at 1633. 1633 norepinephrine increased to 0.48 mcg/kg/min Original Note: 1640 pt having echocardiogram, RN came into room to check on pt. Pt less responsive and appeared to be in respiratory distress, pt then became bradycardic. Called for crash cart and help. pt then lost pulse and code blue activated. see code blue charting.
--- NOTE | 2025-03-21 18:16 | PM.EVENT ---
Event Note Date Patient Seen: 03/21/25 Time Patient Seen: 18:16 Event Note (Rapid Response, Code, or fall): CODE BLUE (#2) TOD (Time of ): 6:19 PM Family at bedside. Summary: The patient went into cardiac arrest again at approximately 17:30. He had a bradycardic arrest and resuscitative efforts ensued for approximately 60 minutes. The patient had multiple rounds of CPR and epinephrine approximately every 2-4 minutes. The patient would attain [place] with a pulse and a heart rate of about 110 maintain this for less than 2 minutes requiring resumption of CPR and additional epinephrine. The patient had a left femoral arterial line placed during the resuscitative efforts. The patient had a left lower leg interosseous line placed during the resuscitative efforts. He was also treated with an epinephrine and vasopressin drip while receiving boluses of epinephrine. Unfortunately, the patient failed to respond to epinephrine towards the end of this effort and would lose his pulse on heart rate within 30 seconds. I informed the family he was in the room for this entire period of time that further efforts were likely futile and that ongoing CPR would provide no additional benefit. The patient had no further CPR attempts and was maintained on the ventilator with an epinephrine and vasopressin drip. He went into a bradycardic arrest and asystole proximally 5 minutes after these discussions with family in the room.
--- NOTE | 2025-03-21 18:21 | PM.AN.INVM ---
Invasive Monitor Note Procedure Procedure: Arterial Catheter Insertion Start Time: 17:30 Stop Time: 18:00 Indication: Medical Management Barrier Precautions Utilized: 2% Chlorhexidine Cutaneous Antisepsis and Sterile Gloves Vessel Utilized: Femoral Artery: Right Lines Catheters Utilized: 20 G Arrow Arterial Catheter Insertion Site Care: Sterile Occlusive Dressing Applied and BioPatch Applied (blue side up) Clinical indicators suggest catheter tip resides in: Other (femoral artery) Ultrasound Ultrasound Guidance Utilized: Yes Ultrasound was used to identify the vessel. Assessed vessel was patent.: Femoral Artery Ultrasound was used to visualize vascular needle entry into the: Femoral Artery Limited exam reveals anatomically normal vessel with no apparent abnormal findings.: Yes Permanent ultrasound image obtained and interpretation documented.: No Complications Complications: other (prolonged code blue for PE, severe R heart failure, assisted with resuscitation efforts with invasive monitoring. Pt did not respond to resuscitation and passed. )
--- NOTE | 2025-03-21 18:42 | PM.DDS.1 ---
Discharge Summary History of Illness Narrative: Summary: Patient was a 49-year-old male with a history of reactive airways. The patient has a history of left leg DVT and pulmonary embolism about 3 years ago away and was anticoagulated for 6 months. He presents to the ED with a 6 day history of progressive dyspnea. ED course: Patient had evidence of acute kidney injury with a creatinine 2.7 and a potassium of 5.4. WBC was 17.1. BP was 94/70. S: Not obtainable. Significant event: The patient was doing well at the turn of shift at 7:00 a.m.. The patient was then found to be quite short of breath and laboring with his breathing at about 830. I was alert and saw the patient briefly and found him to be diaphoretic, with normal saturations but an obvious distress. I ordered BiPAP and within the next 5 minutes heard a code blue called. The patient was found to be pulseless with a rhythm. Resuscitation summary: The patient had immediate CPR started. The patient received CPR for a total of approximately 45 minutes. The patient had what appeared to be a PA arrest with high suspicion for pulmonary embolism given his clear chest x-ray and clear lung CT without contrast. The patient had a prior history of pulmonary embolism and was intubated early in the resuscitation process by Dr. Jean, emergency physician. We discussed the pros and cons of thrombolytics and ultimately decided to give the patient tPA 100 mg IV infusion over 2 hours. The patient would receive CPR and 2 minute cycles with pulse checks. He had a rhythm for the entire 45 minutes but would go bradycardic and lose pulses and have interval doses of epinephrine given. He received approximately 10 doses over the 45 minutes. He also received calcium, and bicarbonate. Ultimately the patient was able to attain [place] for periods of up to 2 minutes before going back into PE. At about the 45 minute gadiel he was able to maintain [place] with the norepinephrine which have been started in the background to provide additional pressure support. The patient was transferred to the ICU and placed on the ventilator. The patient had profound hypoxemia for the next several hours which slowly improved. Initially had evidence of tonic-clonic activity of the eyelids and eyes. At approximately 3 in the afternoon he was able to follow commands from his without any question. The patient had PO2 of 66 initially with sats of 45%. By the mid afternoon his sats were up to 80% on FiO2 100%. A ICU was involved early in his care after transfer to the ICU. Hospital Course Date of Admission: 03/21/25 05:04 Primary care provider: Zaid Rivera MD Consults: Tele-ICU Discharge provider: Jeromy Castillo MD Discharge Diagnosis: 1. . 2. PEA cardiac arrest. 3. Presumed massive pulmonary embolism. 4. JOHN, present on admission and active. 5. Hyperkalemia, present on admission and active. 6. Profound mixed metabolic and respiratory acidosis, new and active. 7. Acute profound severe hypoxemic respiratory failure, new and active. 8. Cardiogenic shock as a result of massive pulmonary embolism, new and active. Hospital Course: The patient was admitted with acute hypoxic respiratory failure and decompensated and coated at about 830 in the morning on the medical castanon. He was resuscitated for over an hour as a PE arrest and given systemic tPA for presumed massive PE. The patient underwent 45 minutes of CPR and was transferred to the ICU. There he was on pressors, and the ventilator for approximately 6 hours. He had profoundly low SaO2 he 5-50% for the 1st 2 hours, only improved up to about 80%. The patient was showing evidence of being able to follow commands with his family. Unfortunately, at about 430 he went into a bradycardia and Re coded. The patient was resuscitated for 90 minutes for a combination of PE arrest and bradycardia. The received many doses of epi after a bolus of epinephrine, in spite of being on vasopressin and epinephrine drips. Ultimately it was felt that further efforts were futile, the family was in the room for the entire reassess rotation. CPR was discontinued and the patient went into an agonal rhythm approximately 1 minute after change in level of care. The cause of is presumed massive pulmonary embolism. Objective ECG Impression: Sinus tachycardia ST & T wave abnormality, consider inferolateral ischemia Imaging Multiple studies: : Radiologist's impression: Chest x-ray: Radiologist's impression: Lungs are clear. CT scan - chest: Radiologist's impression: No acute pulmonary process. ECHO: Severely dilated RV with severely reduced RV systolic function. Severe pHTN and severe tricuspid regurgitation leading to severely dilated RA. LV is compressed by the large sized RV and appears underfilled. LV systolic function is probably preserved. Other findings as below. Findings are most consistent with decompensated RV failure. Labs 03/21/25 10:51 03/21/25 08:09 Labs: Laboratory Results - last 24 hr 03/20/25 03/20/25 03/20/25 22:55 23:16 23:16 WBC 17.1 H RBC 3.79 L Hgb 14.6 Hct 42.7 MCV 112.7 H MCH 38.7 H MCHC 34.3 RDW 15.7 H Plt Count 296 Neut % (Auto) 76.3 H Lymph % (Auto) 13.0 L Spink % (Auto) 9.5 Eos % (Auto) 0.1 L Baso % (Auto) 1.1 Neut # (Auto) 96667 H Lymph # (Auto) 2200 Spink # (Auto) 1600 H Eos # (Auto) 0 Baso # (Auto) 200 H Platelet Estimate Adequate on smear RBC Morphology See below Anisocytosis 1+ H Macrocytosis 1+ H PT 14.1 H INR 1.2 APTT ABG Sample Site ABG pH ABG pCO2 ABG pO2 ABG HCO3 ABG Total CO2 ABG O2 Saturation ABG Base Excess Jeromy Test Respiration Rate O2 Delivery Device Mode of Support FiO2 % PEEP or CPAP Sodium 135 L Potassium 3.7 Chloride 95 L Carbon Dioxide 20 L BUN 42 H Creatinine 2.49 H Estimated GFR 31 L BUN/Creatinine Ratio 16.9 Glucose 133 H POC Whole Bld Glucose Lactate Calcium 9.7 Magnesium 1.8 Total Bilirubin 0.9 AST 58 ALT 56 H Alkaline Phosphatase 101 Troponin I 0.043 H NT-Pro-B Natriuret Pep 97905 H Total Protein 8.4 H Albumin 4.5 Globulin 3.9 Albumin/Globulin Ratio 1.2 Lipase 143 Chlamy pneumoniae PCR Not detected Adenovirus (PCR) Not detected B. pertussis DNA (PCR) Not detected B.parapertussis DNA PCR Not detected Coronavirus OC43 (PCR) Not detected Coronavirus HKU1 (PCR) Not detected Coronavirus 229E (PCR) Not detected SARS-CoV-2 (PCR) Negative Not detected Coronavirus NL63 (PCR) Not detected Human Metapneumovir PCR Not detected Influenza A (RT-PCR) Flu a negative Influenza Type A (PCR) Not detected Influenza B (RT-PCR) Flu b negative Influenza Type B (PCR) Not detected M. pneumoniae (PCR) Not detected Parainfluenza 1 (PCR) Not detected Parainfluenza 2 (PCR) Not detected Parainfluenza 3 (PCR) Not detected Parainfluenza 4 (PCR) Not detected RSV (PCR) Negative Entero/Rhino (PCR) 03/20/25 03/21/25 03/21/25 23:16 01:42 02:01 WBC RBC Hgb Hct MCV MCH MCHC RDW Plt Count Neut % (Auto) Lymph % (Auto) Spink % (Auto) Eos % (Auto) Baso % (Auto) Neut # (Auto) Lymph # (Auto) Spink # (Auto) Eos # (Auto) Baso # (Auto) Platelet Estimate RBC Morphology Anisocytosis Macrocytosis PT INR APTT ABG Sample Site ABG pH ABG pCO2 ABG pO2 ABG HCO3 ABG Total CO2 ABG O2 Saturation ABG Base Excess Jeromy Test Respiration Rate O2 Delivery Device Mode of Support FiO2 % PEEP or CPAP Sodium Potassium Chloride Carbon Dioxide BUN Creatinine Estimated GFR BUN/Creatinine Ratio Glucose POC Whole Bld Glucose Lactate 1.9 Calcium Magnesium Total Bilirubin AST ALT Alkaline Phosphatase Troponin I 0.041 H NT-Pro-B Natriuret Pep Total Protein Albumin Globulin Albumin/Globulin Ratio Lipase Chlamy pneumoniae PCR Adenovirus (PCR) B. pertussis DNA (PCR) B.parapertussis DNA PCR Coronavirus OC43 (PCR) Coronavirus HKU1 (PCR) Coronavirus 229E (PCR) SARS-CoV-2 (PCR) Coronavirus NL63 (PCR) Human Metapneumovir PCR Influenza A (RT-PCR) Influenza Type A (PCR) Influenza B (RT-PCR) Influenza Type B (PCR) M. pneumoniae (PCR) Parainfluenza 1 (PCR) Parainfluenza 2 (PCR) Parainfluenza 3 (PCR) Parainfluenza 4 (PCR) RSV (PCR) Not detected Entero/Rhino (PCR) Not detected 03/21/25 03/21/25 03/21/25 04:50 08:09 10:45 WBC 12.2 H RBC 3.55 L Hgb 13.7 Hct 40.3 L MCV 113.5 H MCH 38.7 H MCHC 34.1 RDW 15.2 H Plt Count 269 Neut % (Auto) 89.4 H Lymph % (Auto) 7.9 L Spink % (Auto) 2.6 L Eos % (Auto) 0.0 L Baso % (Auto) 0.1 Neut # (Auto) 16331 H Lymph # (Auto) 1000 L Spink # (Auto) 300 Eos # (Auto) 0 Baso # (Auto) 0 Platelet Estimate RBC Morphology Not Reportable Anisocytosis 1+ H Macrocytosis PT INR APTT 129 H* ABG Sample Site ABG pH ABG pCO2 ABG pO2 ABG HCO3 ABG Total CO2 ABG O2 Saturation ABG Base Excess Jeromy Test Respiration Rate O2 Delivery Device Mode of Support FiO2 % PEEP or CPAP Sodium 131 L 133 L Potassium 5.4 H D 5.0 Chloride 97 L 98 Carbon Dioxide 19 L 15 L BUN 48 H 49 H Creatinine 2.71 H 3.34 H Estimated GFR 28 L 22 L BUN/Creatinine Ratio 17.7 14.7 Glucose 138 H 190 H POC Whole Bld Glucose Lactate Calcium 8.9 9.2 Magnesium 1.8 Total Bilirubin AST ALT Alkaline Phosphatase Troponin I 0.163 H* NT-Pro-B Natriuret Pep 19933 H Total Protein Albumin Globulin Albumin/Globulin Ratio Lipase Chlamy pneumoniae PCR Adenovirus (PCR) B. pertussis DNA (PCR) B.parapertussis DNA PCR Coronavirus OC43 (PCR) Coronavirus HKU1 (PCR) Coronavirus 229E (PCR) SARS-CoV-2 (PCR) Coronavirus NL63 (PCR) Human Metapneumovir PCR Influenza A (RT-PCR) Influenza Type A (PCR) Influenza B (RT-PCR) Influenza Type B (PCR) M. pneumoniae (PCR) Parainfluenza 1 (PCR) Parainfluenza 2 (PCR) Parainfluenza 3 (PCR) Parainfluenza 4 (PCR) RSV (PCR) Entero/Rhino (PCR) 03/21/25 03/21/25 03/21/25 10:50 10:51 11:32 WBC 17.3 H RBC 3.39 L Hgb 13.1 L Hct 40.6 L MCV 119.8 H D MCH 38.8 H MCHC 32.3 RDW 15.8 H Plt Count 134 L Neut % (Auto) 80.3 H Lymph % (Auto) 15.8 L Spink % (Auto) 2.3 L Eos % (Auto) 1.3 L Baso % (Auto) 0.3 Neut # (Auto) 07493 H Lymph # (Auto) 2700 Spink # (Auto) 400 Eos # (Auto) 200 Baso # (Auto) 0 Platelet Estimate RBC Morphology Not Reportable Anisocytosis 1+ H Macrocytosis PT INR APTT ABG Sample Site Left brachial ABG pH 6.80 L* ABG pCO2 86.4 H* ABG pO2 66 L ABG HCO3 13 L ABG Total CO2 14 L ABG O2 Saturation 68 L* ABG Base Excess -22.8 L Jeromy Test N/a Respiration Rate 20 O2 Delivery Device Adult ventilator Mode of Support Assist cont ventilat FiO2 % 100 % PEEP or CPAP 5 Sodium Potassium Chloride Carbon Dioxide BUN Creatinine Estimated GFR BUN/Creatinine Ratio Glucose POC Whole Bld Glucose Lactate Cancelled Calcium Magnesium Total Bilirubin AST ALT Alkaline Phosphatase Troponin I NT-Pro-B Natriuret Pep Total Protein Albumin Globulin Albumin/Globulin Ratio Lipase Chlamy pneumoniae PCR Adenovirus (PCR) B. pertussis DNA (PCR) B.parapertussis DNA PCR Coronavirus OC43 (PCR) Coronavirus HKU1 (PCR) Coronavirus 229E (PCR) SARS-CoV-2 (PCR) Coronavirus NL63 (PCR) Human Metapneumovir PCR Influenza A (RT-PCR) Influenza Type A (PCR) Influenza B (RT-PCR) Influenza Type B (PCR) M. pneumoniae (PCR) Parainfluenza 1 (PCR) Parainfluenza 2 (PCR) Parainfluenza 3 (PCR) Parainfluenza 4 (PCR) RSV (PCR) Entero/Rhino (PCR) 03/21/25 03/21/25 13:29 13:42 WBC RBC Hgb Hct MCV MCH MCHC RDW Plt Count Neut % (Auto) Lymph % (Auto) Spink % (Auto) Eos % (Auto) Baso % (Auto) Neut # (Auto) Lymph # (Auto) Spink # (Auto) Eos # (Auto) Baso # (Auto) Platelet Estimate RBC Morphology Anisocytosis Macrocytosis PT INR APTT ABG Sample Site ABG pH 6.82 L* ABG pCO2 77.7 H* ABG pO2 68 L ABG HCO3 13 L ABG Total CO2 14 L ABG O2 Saturation 71 L* ABG Base Excess -22.8 L Jeromy Test Respiration Rate O2 Delivery Device Mode of Support FiO2 % PEEP or CPAP Sodium Potassium Chloride Carbon Dioxide BUN Creatinine Estimated GFR BUN/Creatinine Ratio Glucose POC Whole Bld Glucose 259 H Lactate Calcium Magnesium Total Bilirubin AST ALT Alkaline Phosphatase Troponin I NT-Pro-B Natriuret Pep Total Protein Albumin Globulin Albumin/Globulin Ratio Lipase Chlamy pneumoniae PCR Adenovirus (PCR) B. pertussis DNA (PCR) B.parapertussis DNA PCR Coronavirus OC43 (PCR) Coronavirus HKU1 (PCR) Coronavirus 229E (PCR) SARS-CoV-2 (PCR) Coronavirus NL63 (PCR) Human Metapneumovir PCR Influenza A (RT-PCR) Influenza Type A (PCR) Influenza B (RT-PCR) Influenza Type B (PCR) M. pneumoniae (PCR) Parainfluenza 1 (PCR) Parainfluenza 2 (PCR) Parainfluenza 3 (PCR) Parainfluenza 4 (PCR) RSV (PCR) Entero/Rhino (PCR)
--- NOTE | 2025-03-22 00:12 | PC.NURSE ---
1900-Change of shift, patient had already , family in room gathering all belongings. CO on phone addressing if Coroners case and Organ donation? [phone]-Report back not Coroners case, all lines and tubes removed from body. [phone]-Phoned , Najma Kent, message left. [phone]- returned message, husbands body may go to [facility], phone # given to her. 0010-Body picked up by [place]. No belongings. 1 pack chewing tobacco previously locked in Hospital safe. Family stated throw it out
[2025-03-26 04:41] LABS: Blood Gas Collection Site Left Brachial
== END 2025-03-22 00:33 | disposition expired | DRG 134 ==
LOC: ED 03-21 05:01 → AC 03-21 05:05 → ICU 03-21 11:11
PROVIDERS: Hospitalist; Admitting Provider Internal Medicine; Emergency Provider Emergency Medicine; PCP Family Medicine; Referring Provider Emergency Medicine; Visit Provider Internal Medicine
DX: I26.99 Other pulmonary embolism without acute cor pulmonale (principal); J18.9 Pneumonia, unspecified organism; J96.01 Acute respiratory failure with hypoxia; R57.8 Other shock; I50.9 Heart failure, unspecified; F17.220 Nicotine dependence, chewing tobacco, uncomplicated; N17.9 Acute kidney failure, unspecified; J45.909 Unspecified asthma, uncomplicated; I11.0 Hypertensive heart disease with heart failure; E78.00 Pure hypercholesterolemia, unspecified; F10.90 Alcohol use, unspecified, uncomplicated; Z86.718 Personal history of other venous thrombosis and embolism
CPT/HCPCS: 0241U; 36415; 36600; 71045; 71250; 80048; 80053; 82805; 82962; 83605; 83690; 83735; 83880; 84484; 85025; 85610; 85730; 87040; 87633; 92950; 93005; 93010; 93307; 93970; 94002; 94640; 94762; 94799; 96365; 96375; 99285; 99291; C8929; J0171; J0696; J1650; J1938; J2919; J2997; J7613; Q9957